=== PATIENT | male | born 1945 | race Caucasian/White ===

== ENCOUNTER → 2020-07-14 | Outpatient (CLI) | payer MEDICARE ==
--- NOTE | 2020-07-14 13:35 | US ---
EXAMINATION TYPE: US kidneys/renal and bladder DATE OF EXAM: 07/14/2020 COMPARISON: NONE CLINICAL HISTORY: R31.29 Microscopic hematuria. Hematuria EXAM MEASUREMENTS: Right Kidney: 11.0 x 4.9 x 4.3 cm Left Kidney: 10.6 x 5.1 x 4.0 cm Right Kidney: Hypoechoic area mid pole 5.0 x 3.9 x 4.1 cm this is not a couple cyst. Complex cyst or solid lesion may be present. Recommend CT abdomen pelvis for additional workup. Left Kidney: No hydronephrosis or masses seen Bladder: Anechoic Bilateral Jets seen: Yes IMPRESSION: 1. Complex cyst or solid lesion mid right kidney. CT abdomen pelvis with contrast recommended for add itional workup.
== END | disposition home or self-care (01) ==
LOC: RADUSWWP 12:55
PROVIDERS: ATTEND Family Medicine
DX: R31.29 Other microscopic hematuria (principal)
CPT/HCPCS: 76770

== ENCOUNTER 2020-08-22 01:47 | Inpatient (IN) | payer MEDICARE ==
[2020-08-22] MEDS ORDERED: KETOROLAC 15 MG/ML 1 ML VIAL IVP STA (02:58)
[2020-08-22] MEDS ORDERED: MORPHINE SULFATE 4 MG/ML SYRINGE IV STA ×2 (02:58→03:26)
[2020-08-22 03:00] LABS: Basophils # (A) 0.1 k/uL (0-0.2); Basophils % (A) 1 %; Eosinophils # (A) 0.2 k/uL (0-0.7); Eosinophils % (A) 3 %; HCT 46.9 % (39.0-53.0); HGB 16.3 gm/dL (13.0-17.5); Lymphocytes # (A) 1.8 k/uL (1.0-4.8); Lymphocytes % (A) 24 %; MCH 31.2 pg (25.0-35.0); MCHC 34.8 g/dL (31.0-37.0); MCV 89.7 fL (80.0-100.0); Mean Platelet Volume 7.2; Monocytes # (A) 0.6 k/uL (0-1.0); Monocytes % (A) 8 %; Neutrophils # (A) 4.7 k/uL (1.3-7.7); Neutrophils % (A) 63 %; Platelet Count 225 k/uL (150-450); RBC 5.24 m/uL (4.30-5.90); RDW 12.9 % (11.5-15.5); WBC 7.4 k/uL (3.8-10.6)
[2020-08-22 03:11] LABS: Albumin 4.6 g/dL (3.5-5.0); Calcium 9.7 mg/dL (8.4-10.2); Potassium 4.1 mmol/L (3.5-5.1); Total Bilirubin 0.8 mg/dL (0.2-1.3); Total Protein 7.2 g/dL (6.3-8.2)
[2020-08-22 03:26] LABS: Appearance,Urine Turbid (Clear); Bilirubin,Urine Negative (Negative); Blood,Urine Large (Negative); Color,Urine Dark Red; Glucose,Urine (UA) Negative (Negative); Ketones,Urine Negative (Negative); Leukocyte Esterase,Urine Small (Negative); Nitrite,Urine Negative (Negative); Protein,Urine 2+ (Negative); RBC,Urine >182 /hpf (0-5); Urobilinogen,Urine <2.0 mg/dL (<2.0); WBC,Urine 37 /hpf (0-5)
--- NOTE | 2020-08-22 03:29 | ED ---
General Adult HPI - General Chief complaint: Urogenital Stated complaint: RT side flank pain Time Seen by Provider: 08/22/20 02:42 Source: patient Mode of arrival: wheelchair Limitations: no limitations - History of Present Illness Initial comments: This patient is a 75-year-old man who presents to be evaluated for suspected kidney stone. Patient states that about 4 hours ago he started having pain to the right flank that he states was similar to previous episode a stone area patient also was having associated nausea and he noted hematuria. Onset/Timin -: hour(s) Location: abdomen, right Radiation: non-radiation Quality: aching, sharp Consistency: colicky Improves with: none Worsens with: none Associated Symptoms: nausea/vomiting, other (Hematuria) Treatments Prior to Arrival: none - Related Data Home Medications Medication Instructions Recorded Confirmed Aspirin EC [Ecotrin] 325 mg PO HS 08/22/20 08/22/20 Atorvastatin Calcium [Lipitor] 10 mg PO HS 08/22/20 08/22/20 amLODIPine BESYLATE/BENAZEPRIL 1 cap PO HS 08/22/20 08/22/20 [Lotrel 10-20 MG] Allergies Allergy/AdvReac Type Severity Reaction Status Date / Time No Known Allergies Allergy Verified 08/22/20 06:53 Review of Systems ROS Statement: Those systems with pertinent positive or pertinent negative responses have been documented in the HPI. ROS Other: All systems not noted in ROS Statement are negative. Constitutional: Denies: fever, chills Respiratory: Denies: cough, dyspnea Cardiovascular: Denies: chest pain, palpitations, edema Gastrointestinal: Reports: as per HPI, abdominal pain, nausea. Denies: vomiting, diarrhea, constipation, melena, hematochezia Genitourinary: Reports: hematuria. Denies: dysuria, frequency, testicular pain, testicular mass Musculoskeletal: Denies: back pain Skin: Denies: rash Neurological: Denies: headache, weakness, numbness Past Medical History Past Medical History: Hypertension Additional Past Medical History / Comment(s): Stroke History of Any Multi-Drug Resistant Organisms: None Reported Past Surgical History: Orthopedic Surgery Past Psychological History: No Psychological Hx Reported Smoking Status: Never smoker Past Alcohol Use History: None Reported Past Drug Use History: None Reported General Exam Limitations: no limitations General appearance: alert, in no apparent distress Head exam: Present: atraumatic, normocephalic Eye exam: Present: normal appearance. Absent: scleral icterus, conjunctival injection Respiratory exam: Present: normal lung sounds bilaterally. Absent: respiratory distress, wheezes, rales, rhonchi, stridor Cardiovascular Exam: Present: normal rhythm, bradycardia, normal heart sounds. Absent: systolic murmur, diastolic murmur, rubs, gallop GI/Abdominal exam: Present: soft. Absent: distended, tenderness, guarding, rebound, rigid, mass Extremities exam: Present: normal inspection, normal capillary refill. Absent: pedal edema, calf tenderness Back exam: Present: normal inspection, CVA tenderness (R). Absent: CVA tenderness (L) Neurological exam: Present: alert Skin exam: Present: warm, dry, intact, normal color. Absent: rash Course Vital Signs 08/22/20 08/22/20 08/22/20 01:58 03:04 06:00 Temperature 97.5 F L Pulse Rate 57 L 82 69 Respiratory 18 16 16 Rate Blood Pressure 157/85 154/77 141/71 O2 Sat by Pulse 100 97 98 Oximetry Medical Decision Making - Lab Data Result diagrams: 08/22/20 02:51 08/22/20 02:51 Lab Results 08/22/20 08/22/20 08/22/20 Range/Units 02:51 02:51 02:51 WBC 7.4 (3.8-10.6) k/uL RBC 5.24 (4.30-5.90) m/uL Hgb 16.3 (13.0-17.5) gm/dL Hct 46.9 (39.0-53.0) % MCV 89.7 (80.0-100.0) fL MCH 31.2 (25.0-35.0) pg MCHC 34.8 (31.0-37.0) g/dL RDW 12.9 (11.5-15.5) % Plt Count 225 (150-450) k/uL MPV 7.2 Neutrophils % 63 % Lymphocytes % 24 % Monocytes % 8 % Eosinophils % 3 % Basophils % 1 % Neutrophils # 4.7 (1.3-7.7) k/uL Lymphocytes # 1.8 (1.0-4.8) k/uL Monocytes # 0.6 (0-1.0) k/uL Eosinophils # 0.2 (0-0.7) k/uL Basophils # 0.1 (0-0.2) k/uL Sodium 136 L (137-145) mmol/L Potassium 4.1 (3.5-5.1) mmol/L Chloride 99 (98-107) mmol/L Carbon Dioxide 28 (22-30) mmol/L Anion Gap 9 mmol/L BUN 20 (9-20) mg/dL Creatinine 0.98 (0.66-1.25) mg/dL Est GFR (CKD-EPI)AfAm 88 (>60 ml/min/1.73 sqM) Est GFR (CKD-EPI)NonAf 76 (>60 ml/min/1.73 sqM) Glucose 119 H (74-99) mg/dL Calcium 9.7 (8.4-10.2) mg/dL Total Bilirubin 0.8 (0.2-1.3) mg/dL AST 34 (17-59) U/L ALT 36 (4-49) U/L Alkaline Phosphatase 127 H (38-126) U/L Total Protein 7.2 (6.3-8.2) g/dL Albumin 4.6 (3.5-5.0) g/dL Amylase 74 (30-110) U/L Lipase 261 (23-300) U/L Urine Color Dark Red Urine Appearance Turbid (Clear) Urine pH 6.0 (5.0-8.0) Ur Specific [place] 1.020 (1.001-1.035) Urine Protein 2+ H (Negative) Urine Glucose (UA) Negative (Negative) Urine Ketones Negative (Negative) Urine Blood Large H (Negative) Urine Nitrite Negative (Negative) Urine Bilirubin Negative (Negative) Urine Urobilinogen <2.0 (<2.0) mg/dL Ur Leukocyte Esterase Small H (Negative) Urine RBC >182 H (0-5) /hpf Urine WBC 37 H (0-5) /hpf Coronavirus (PCR) (Not Detectd) 08/22/20 Range/Units 05:24 WBC (3.8-10.6) k/uL RBC (4.30-5.90) m/uL Hgb (13.0-17.5) gm/dL Hct (39.0-53.0) % MCV (80.0-100.0) fL MCH (25.0-35.0) pg MCHC (31.0-37.0) g/dL RDW (11.5-15.5) % Plt Count (150-450) k/uL MPV Neutrophils % % Lymphocytes % % Monocytes % % Eosinophils % % Basophils % % Neutrophils # (1.3-7.7) k/uL Lymphocytes # (1.0-4.8) k/uL Monocytes # (0-1.0) k/uL Eosinophils # (0-0.7) k/uL Basophils # (0-0.2) k/uL Sodium (137-145) mmol/L Potassium (3.5-5.1) mmol/L Chloride (98-107) mmol/L Carbon Dioxide (22-30) mmol/L Anion Gap mmol/L BUN (9-20) mg/dL Creatinine (0.66-1.25) mg/dL Est GFR (CKD-EPI)AfAm (>60 ml/min/1.73 sqM) Est GFR (CKD-EPI)NonAf (>60 ml/min/1.73 sqM) Glucose (74-99) mg/dL Calcium (8.4-10.2) mg/dL Total Bilirubin (0.2-1.3) mg/dL AST (17-59) U/L ALT (4-49) U/L Alkaline Phosphatase (38-126) U/L Total Protein (6.3-8.2) g/dL Albumin (3.5-5.0) g/dL Amylase (30-110) U/L Lipase (23-300) U/L Urine Color Urine Appearance (Clear) Urine pH (5.0-8.0) Ur Specific [place] (1.001-1.035) Urine Protein (Negative) Urine Glucose (UA) (Negative) Urine Ketones (Negative) Urine Blood (Negative) Urine Nitrite (Negative) Urine Bilirubin (Negative) Urine Urobilinogen (<2.0) mg/dL Ur Leukocyte Esterase (Negative) Urine RBC (0-5) /hpf Urine WBC (0-5) /hpf Coronavirus (PCR) Not Detected (Not Detectd) Disposition Clinical Impression: Kidney stone on right side, Renal mass, right, Intractable pain Disposition: ADMITTED IP TO THIS HOSP Condition: Fair Is patient prescribed a controlled substance at d/c from ED?: No Referrals: Clifton Pearson MD [Primary Care Provider] - 1-2 days
--- NOTE | 2020-08-22 04:18 | CT ---
EXAM: CT Abdomen and Pelvis Without Intravenous Contrast CLINICAL HISTORY: ITS.REASON CT Reason: stone protocol TECHNIQUE: Axial computed tomography images of the abdomen and pelvis without intravenous contrast. CTDI is 10.87 mGy and DLP is 610.3 mGy-cm. This CT exam was performed using one or more of the following dose reduction techniques: automated exposure control, adjustment of the mA and/or kV according to patient size, and/or use of iterative reconstruction technique. COMPARISON: 07/14/2020 FINDINGS: Lung bases: No mass. No consolidation. ABDOMEN: Liver: Mildly nodular. Gallbladder and bile ducts: Unremarkable. Pancreas: No ductal dilation. Spleen: Unremarkable. Adrenals: Unremarkable. Kidneys and ureters: Mild right hydroureteronephrosis secondary to 6 mm stone in the proximal ureter. There is high-density fluid in the right proximal ureter and renal pelvis. 4.9 cm masslike process arising from the upper pole the right kidney. Mild left pelvocaliectasis. Stomach and bowel: No bowel obstruction. No bowel wall thickening. PELVIS: Appendix: No evidence of appendicitis. Bladder: No stones. Mildly thickened Reproductive: Unremarkable. ABDOMEN and PELVIS: Intraperitoneal space: Unremarkable. Bones/joints: No acute fractures. Soft tissues: Unremarkable. Vasculature: No abdominal aortic aneurysm. Lymph nodes: No enlarged lymph nodes. IMPRESSION: 1. Mild right hydroureteronephrosis secondary to 6 mm stone in the proximal ureter. 2. 4.9 cm masslike process arising from the upper pole the right kidney. Suspicious for neoplasm. 3. There is high-density fluid in the right proximal ureter and renal pelvis. This may be hemorrhage from the mass. Recommend urology consultation.
[2020-08-22] MEDS ORDERED: TAMSULOSIN 0.4 MG CAP.ER.24H PO STA (04:23)
[2020-08-22] MEDS ORDERED: HYDROmorphone 0.5 MG/0.5 ML SYRINGE IVP STA (04:56)
[2020-08-22] MEDS ORDERED: ONDANSETRON 4 MG/2 ML VIAL IVP STA (05:53)
[2020-08-22] MEDS ORDERED: LEVOFLOXACIN 500 MG TAB PO STA (06:14)
[2020-08-22] MEDS ORDERED: NALOXONE 0.4 MG/ML 1 ML VIAL IV PRN (06:58)
[2020-08-22] MEDS ORDERED: ONDANSETRON 4 MG/2 ML VIAL IVP PRN (06:58)
[2020-08-22] MEDS ORDERED: MORPHINE SULFATE 4 MG/ML SYRINGE IV PRN (06:58)
[2020-08-22] MEDS ORDERED: ACETAMINOPHEN TAB 325 MG TAB PO PRN (06:58)
[2020-08-22] MEDS: SODIUM CHLORIDE 0.9% 1,000 ML IV SCH ×3 (07:04→22:23)
[2020-08-22] MEDS: FAMOTIDINE 20 MG TAB PO SCH ×2 (08:31→20:03)
[2020-08-22] MEDS: HYDROmorphone 0.5 MG/0.5 ML SYRINGE IVP PRN ×4 (08:38→22:52)
--- NOTE | 2020-08-22 11:00 | P.GSCN ---
History of Present Illness Consult date: 08/22/20 Reason for Consult: Right renal mass, right ureteral calculus Requesting physician: Dre De Santiago History of present illness: The patient is a 75-year-old white male with a long history of kidney stones. He had an episode of gross painless hematuria 1 month ago. Last night, he experienced acute onset of nonradiating right flank pain associated with gross hematuria. He also experienced nausea and vomiting. Review of Systems - Constitutional Denies chills, Denies fever - Gastrointestinal Reports nausea, Reports vomiting - Genitourinary Reports flank pain, Reports hematuria Past Medical History Past Medical History: Hypertension Additional Past Medical History / Comment(s): Stroke History of Any Multi-Drug Resistant Organisms: None Reported Past Surgical History: Orthopedic Surgery Past Psychological History: No Psychological Hx Reported Smoking Status: Never smoker Past Alcohol Use History: None Reported Past Drug Use History: None Reported - Past Family History Mother Family Medical History: CVA/TIA Additional Family Medical History / Comment(s): Mother had a CVA. Father Family Medical History: Unable to Obtain Additional Family Medical History / Comment(s): Pt cannot recall father's medical hx Medications and Allergies Home Medications Medication Instructions Recorded Confirmed Type Aspirin EC [Ecotrin] 325 mg PO HS 08/22/20 08/22/20 History Atorvastatin Calcium [Lipitor] 10 mg PO HS 08/22/20 08/22/20 History amLODIPine BESYLATE/BENAZEPRIL 1 cap PO HS 08/22/20 08/22/20 History [Lotrel 10-20 MG] Allergies Allergy/AdvReac Type Severity Reaction Status Date / Time No Known Allergies Allergy Verified 08/22/20 06:53 Surgical - Exam Vital Signs Temp Pulse Resp BP Pulse Ox 97.5 F L 57 L 18 157/85 100 08/22/20 01:58 08/22/20 01:58 08/22/20 01:58 08/22/20 01:58 08/22/20 01:58 - General well developed, well nourished, no distress - Neck no masses, trachea midline - Respiratory normal respiratory effort, clear to auscultation - Cardiovascular Rhythm: regular Abnormal Heart Sounds: no systolic murmur, no diastolic murmur, no rub, no S3 Gallop, no S4 Gallop, no click, no other - Abdomen Abdomen: soft, non tender, no guarding, no rigid, no rebound - Psychiatric oriented to time, oriented to person, oriented to place, speech is normal, memory intact Results - Labs 08/22/20 02:51 08/22/20 02:51 Abnormal Lab Results - Last 24 Hours (Table) 08/22/20 08/22/20 Range/Units 02:51 02:51 Sodium 136 L (137-145) mmol/L Glucose 119 H (74-99) mg/dL Alkaline Phosphatase 127 H (38-126) U/L Urine Protein 2+ H (Negative) Urine Blood Large H (Negative) Ur Leukocyte Esterase Small H (Negative) Urine RBC >182 H (0-5) /hpf Urine WBC 37 H (0-5) /hpf Diabetes panel 08/22/20 Range/Units 02:51 Sodium 136 L (137-145) mmol/L Potassium 4.1 (3.5-5.1) mmol/L Chloride 99 (98-107) mmol/L Carbon Dioxide 28 (22-30) mmol/L BUN 20 (9-20) mg/dL Creatinine 0.98 (0.66-1.25) mg/dL Glucose 119 H (74-99) mg/dL Calcium 9.7 (8.4-10.2) mg/dL AST 34 (17-59) U/L ALT 36 (4-49) U/L Alkaline Phosphatase 127 H (38-126) U/L Total Protein 7.2 (6.3-8.2) g/dL Albumin 4.6 (3.5-5.0) g/dL Calcium panel 08/22/20 Range/Units 02:51 Calcium 9.7 (8.4-10.2) mg/dL Albumin 4.6 (3.5-5.0) g/dL Pituitary panel 08/22/20 Range/Units 02:51 Sodium 136 L (137-145) mmol/L Potassium 4.1 (3.5-5.1) mmol/L Chloride 99 (98-107) mmol/L Carbon Dioxide 28 (22-30) mmol/L BUN 20 (9-20) mg/dL Creatinine 0.98 (0.66-1.25) mg/dL Glucose 119 H (74-99) mg/dL Calcium 9.7 (8.4-10.2) mg/dL Adrenal panel 08/22/20 Range/Units 02:51 Sodium 136 L (137-145) mmol/L Potassium 4.1 (3.5-5.1) mmol/L Chloride 99 (98-107) mmol/L Carbon Dioxide 28 (22-30) mmol/L BUN 20 (9-20) mg/dL Creatinine 0.98 (0.66-1.25) mg/dL Glucose 119 H (74-99) mg/dL Calcium 9.7 (8.4-10.2) mg/dL Total Bilirubin 0.8 (0.2-1.3) mg/dL AST 34 (17-59) U/L ALT 36 (4-49) U/L Alkaline Phosphatase 127 H (38-126) U/L Total Protein 7.2 (6.3-8.2) g/dL Albumin 4.6 (3.5-5.0) g/dL - Imaging CT scan - abdomen: report reviewed, image reviewed Assessment and Plan (1) Calculus of ureter Current Visit: Yes Status: Acute Code(s): N20.1 - CALCULUS OF URETER SNOMED Code(s): 90068316 (2) Renal mass, right Current Visit: Yes Status: Acute Code(s): N28.89 - OTHER SPECIFIED DISORDERS OF KIDNEY AND URETER SNOMED Code(s): 285239846 (3) Hydronephrosis with renal and ureteral calculous obstruction Current Visit: Yes Status: Acute Code(s): N13.2 - HYDRONEPHROSIS WITH RENAL AND URETERAL CALCULOUS OBSTRUCTION SNOMED Code(s): 157989678 Plan: The computed tomography scan shows mild right hydronephrosis due to a 6 mm right proximal ureteral calculus. A 4.9 cm right upper pole renal mass is also seen, suspicious for renal cell carcinoma. The mass may or may not be amenable to a partial nephrectomy. I have suggested he undergo cystoscopy, right ureteroscopy with Holmium laser lithotripsy to remove the right ureteral calculus. We will then determine whether he is better suited for a partial or total nephrectomy. I intend to perform ureteroscopy later today. I have reviewed the procedure in detail with the patient. Potential risks have been discussed, including anesthesia, bleeding, infection, ureteral injury, and inability to successfully remove the calculus. The need for a ureteral stent was discussed, and he was also advised of the possible need for a nephrostomy tube in the event that the obstruction cannot be resolved or the ureter is injured. Time with Patient: Greater than 30
[2020-08-22] MEDS ORDERED: IV FLUID CONTINUATION 1,000 ML IV ONE (14:39)
[2020-08-22] MEDS ORDERED: DEXAMETHASONE SOD PHOSPHATE 4 MG/ML 1 ML VIAL IV ONE (15:01)
[2020-08-22] MEDS ORDERED: METOCLOPRAMIDE 5 MG/ML 2 ML VIAL ONE (15:06)
[2020-08-22] MEDS ORDERED: METOCLOPRAMIDE 5 MG/ML 2 ML VIAL IVP ONE (15:09)
[2020-08-22] MEDS ORDERED: fentaNYL (PF) 50 MCG/ML 2 ML AMP ONE (15:45)
[2020-08-22] MEDS ORDERED: LIDOCAINE 1% INJ 10MG/ML (20 ML MDV) ONE (15:45)
[2020-08-22] MEDS ORDERED: SUCCINYLCHOLINE CHLORIDE 100 MG/5 ML SYR IV ONE (15:45)
[2020-08-22] MEDS ORDERED: MIDAZOLAM 2 MG/2 ML VIAL ONE (15:45)
[2020-08-22] MEDS ORDERED: PROPOFOL 10 MG/ML 20 ML VIAL IV ONE (15:45)
[2020-08-22] MEDS ORDERED: ePHEDrine SULFATE/0.9% NACL/PF 50 MG/5 ML SYRINGE IV ONE (15:45)
--- NOTE | 2020-08-22 18:06 | P.OP ---
Date of Procedure: 08/22/20 Preoperative Diagnosis: Right ureteral calculus Postoperative Diagnosis: Same Procedure(s) Performed: Cystoscopy, right ureteroscopy with Holmium laser lithotripsy and stone basketing, right ureteral stent insertion Anesthesia: SALLIE Surgeon: Dejuan Bush Estimated Blood Loss (ml): 30 IV fluids (ml): 650 Pathology: other (Calculus fragment, sent for chemical analysis) Condition: stable Disposition: PACU Indications for Procedure: The patient is a 75-year-old white male with a long history of kidney stones. He had an episode of gross painless hematuria 1 month ago. Last night, he experienced acute onset of nonradiating right flank pain associated with gross hematuria. He also experienced nausea and vomiting. The CT scan shows mild right hydronephrosis due to a 6 mm right proximal ureteral calculus, as well as a 4.9 cm right upper pole renal mass. Operative Findings: Successful fragmentation and removal of right ureteral calculus. Description of Procedure: The patient was taken to the operating room and placed in the dorsolithotomy position, with legs supported in Alfonso stirrups. The external genitalia was prepped and draped sterilely. The 30 lens was used to introduce the 21-Nepalese Richard cystoscopic sheath through the urethra and into the bladder under direct vision. The prostatic urethra showed evidence of mild lateral lobe enlargement and a high median bar. The bladder was examined in its entirety. Both ureteral orifices were normal anatomic location and configuration, and clear urine effluxed from the left. Bloody urine effluxed from the right ureteral orifice. No tumors or foreign bodies were seen. A 0.038 inch Glidewire was passed through the cystoscope. The ureteral orifice was cannulated, and the Glidewire was advanced up to the renal pelvis. The cystoscope was removed, and an 11/13- Nepalese ureteral access catheter was passed over the wire, up to the proximal ureter. The flexible ureteroscope was then passed through the ureteral access catheter sheath, up to the stone. The 200 micron Holmium laser probe was passed through the ureteroscope, and lithotripsy was performed. The calculus refluxed into the kidney, which was filled with clot. The ureteroscope was advanced to follow the calculus, and the calculus was fragmented. It was necessary to irrigate multiple clots from the renal pelvis to improve visualization. Some clots were removed with a 1.9-Nepalese nitinol basket, along with the largest calculus fragment. There were several very small residual calculus fragments within an upper pole calyx which could not be manipulated into the field of vision to allow lasering or basketing. The Glidewire was passed through the ureteroscope, which was removed along with the ureteral access catheter sheath. A longitudinal mucosal tear was noted within the mid ureter, resulting from the ureteral access catheter sheath. The Glidewire was backloaded into the cystoscope, which was passed into the bladder. A 26 cm, 6-Nepalese double-J ureteral stent was placed over the wire. Proper stent positioning of verified fluoroscopically and endoscopically. The bladder was emptied and the cystoscope removed. The patient tolerated the procedure well and was taken to the recovery room in stable condition. [facility] [place] [facility] Report: Procedure Acuity: Urgent Stone Size and Location: 6 mm, right proximal ureter Ureteral Dilation: No Ureteral Access Sheath Used: Yes Stone Sent for Analysis: Yes All Stones/Fragments Were Removed with a Basket: No Complications: No Preoperative Antibiotics Given: No Stent Placed: Yes If Stent Placed, Was String Left Attached: No If Stent Placed, When is it to be Removed: 2 weeks Discharge Medications:
--- NOTE | 2020-08-22 20:29 | P.HPIM ---
History of Present Illness H&P Date: 08/22/20 Chief Complaint: Right flank pain History of presenting complaint: This is a pleasant 75-year-old patient of Dr. hays. Chronic stable medical conditions include hypertension, hyperlipidemia, some arthritis. In the right hand. Patient presents with right flank pain present for several hours. No fever no chills. Had nausea vomiting. Has some hematuria. Pain did not radiate anywhere. Pain is still present. Review of systems: GEN.: Tired EYES: None HEENT: None NECK: None RESPIRATORY: None CARDIOVASCULAR: None GASTROINTESTINAL: As above] GENITOURINARY: As above MUSCULOSKELETAL: Some joint pain in the right hands. She the thumb LYMPHATICS: None HEMATOLOGICAL: None PSYCHIATRY: None NEUROLOGICAL: None Past medical history to include: Stroke, hypertension, hyperlipidemia number surgery cystolithotripsy pyloric sphincter surgery as a baby Social history: . Does not smoke or drink alcohol. [employer] Physical examination: VITAL SIGNS: 97.5, 57, 18, 1 57 x 85, 100% room air-upon presentation GENERAL: BMI 25.8, laying in bed, slightly uncomfortable. EYES: Pupils equal. Conjunctiva normal. HEENT: External appearance of nose and ears normal, oral cavity grossly normal. NECK: JVD not raised; masses not palpable. HEART: First and second heart sounds are normal; no edema. LUNGS: Respiratory rate normal; clear to auscultation. MUSCULAR skeletal: Evidence of arthritis especially in the hands ABDOMEN: Soft, right flank tenderness, liver spleen not palpable, no masses palpable. PSYCH: Alert and oriented x3; mood and affect normal. NEUROLOGICAL: Cranial nerves grossly intact; no facial asymmetry, power and sensation grossly intact. LYMPHATICS: No lymph nodes palpable in the axilla and neck INVESTIGATIONS, reviewed in the clinical context: WBC 7.4 hemoglobin 16.3 platelets 225 potassium 4.1 creatinine 0.98 UA positive for protein 2+, blood large, RBC greater than 182 Coronavirus [PCL]-not detected Computed tomography scan of the abdomen and pelvis without IV contrast: Mild right hydroureteronephrosis secondary to 6 mm stone in the proximal ureter. High density fluid in the right proximal ureter and renal pelvis. 4.9 cm masslike process arising from the upper pole of the right kidney. Assessment and plan: -Right hydroureteronephrosis secondary to 6 mm. stone in the proximal ureter. Patient be started on IV fluids. Urology is consulted. Possible intervention -4.9 cm masslike process arising from the upper pole of the right kidney. This will be followed by urology -Hematuria due to ureter stone -Essential hypertension, continue with Lotrel -Hyperlipidemia, continue with Lipitor Patient is an IV fluids. Pain medications. Lovenox for DVT prophylaxis. Patient be taken to the OR this afternoon by Dr. Velasquez from urology, for possible lithotripsy, stent. Care was discussed with the patient and . Questions answered. Past Medical History Past Medical History: Hypertension Additional Past Medical History / Comment(s): Stroke History of Any Multi-Drug Resistant Organisms: None Reported Past Surgical History: Orthopedic Surgery Additional Past Surgical History / Comment(s): Lumbar surgery, cysto/lithotripsy, pyloric sphincter surgery as baby, R rotator cuff surgery, colonoscopy, bilateral cataract removal. Past Anesthesia/Blood Transfusion Reactions: No Reported Reaction Past Psychological History: No Psychological Hx Reported Smoking Status: Never smoker Past Alcohol Use History: None Reported Past Drug Use History: None Reported - Past Family History Mother Family Medical History: CVA/TIA Additional Family Medical History / Comment(s): Mother had a CVA. Father Family Medical History: Unable to Obtain Additional Family Medical History / Comment(s): Pt cannot recall father's medi leslye hx Medications and Allergies Home Medications Medication Instructions Recorded Confirmed Type Aspirin EC [Ecotrin] 325 mg PO HS 08/22/20 08/22/20 History Atorvastatin Calcium [Lipitor] 10 mg PO HS 08/22/20 08/22/20 History amLODIPine BESYLATE/BENAZEPRIL 1 cap PO HS 08/22/20 08/22/20 History [Lotrel 10-20 MG] Allergies Allergy/AdvReac Type Severity Reaction Status Date / Time No Known Allergies Allergy Verified 08/22/20 06:53 Physical Exam Vitals: Vital Signs Temp Pulse Pulse Resp BP BP Pulse Ox 08/22/20 08:07 97.6 F 61 16 139/60 94 L 08/22/20 06:00 69 16 141/71 98 08/22/20 03:04 82 16 154/77 97 08/22/20 01:58 97.5 F L 57 L 18 157/85 100 Intake and Output 08/21/20 08/22/20 08/22/20 22:59 06:59 14:59 Other: Voiding Method Toilet Toilet Weight 81.647 kg 81.647 kg Results CBC & Chem 7: 08/22/20 02:51 08/22/20 02:51 Labs: Abnormal Lab Results - Last 24 Hours (Table) 08/22/20 08/22/20 Range/Units 02:51 02:51 Sodium 136 L (137-145) mmol/L Glucose 119 H (74-99) mg/dL Alkaline Phosphatase 127 H (38-126) U/L Urine Protein 2+ H (Negative) Urine Blood Large H (Negative) Ur Leukocyte Esterase Small H (Negative) Urine RBC >182 H (0-5) /hpf Urine WBC 37 H (0-5) /hpf Thrombosis Risk Factor Assmnt - Choose All That Apply Any of the Below Risk Factors Present?: Yes Each Factor Represents 1 point: Minor surgery planned Other Risk Factors: Yes Each Risk Factor Represents 2 Points: Age 61-74 years Other congenital or acquired thrombophilia - If yes, enter type in comment: No Thrombosis Risk Factor Assessment Total Risk Factor Score: 3 Thrombosis Risk Factor Assessment Level: Moderate Risk
[2020-08-22] MEDS ORDERED: ATORVASTATIN 10 MG TAB PO SCH (21:00)
[2020-08-22] MEDS ORDERED: lisinopriL 20 MG TAB PO SCH (21:00)
[2020-08-22] MEDS ORDERED: amLODIPine 10 MG TAB PO SCH (21:00)
[2020-08-22] MEDS: ENOXAPARIN 40 MG/0.4 ML SYRINGE SQ SCH (21:04)
[2020-08-23] MEDS: HYDROmorphone 0.5 MG/0.5 ML SYRINGE IVP PRN ×2 (01:02→07:15)
[2020-08-23] MEDS: SODIUM CHLORIDE 0.9% 1,000 ML IV SCH (04:17)
[2020-08-23 04:48] LABS: Basophils % (A) 0 %; Eosinophils % (A) 0 %; HCT 40.5 % (39.0-53.0); HGB 14.3 gm/dL (13.0-17.5); Lymphocytes # (A) 0.5 k/uL (1.0-4.8); Lymphocytes % (A) 4 %; MCH 32.1 pg (25.0-35.0); MCHC 35.3 g/dL (31.0-37.0); MCV 90.9 fL (80.0-100.0); Mean Platelet Volume 7.3; Monocytes # (A) 0.8 k/uL (0-1.0); Monocytes % (A) 6 %; Neutrophils # (A) 11.8 k/uL (1.3-7.7); Neutrophils % (A) 90 %; Platelet Count 161 k/uL (150-450); RBC 4.46 m/uL (4.30-5.90); WBC 13.2 k/uL (3.8-10.6)
[2020-08-23 04:54] LABS: African American GFR (CKD) 66 (>60 ml/min/1.73 sqM); Anion Gap 6 mmol/L; Blood Urea Nitrogen 21 mg/dL (9-20); Calcium 8.9 mg/dL (8.4-10.2); Carbon Dioxide 25 mmol/L (22-30); Chloride 103 mmol/L (98-107); Glucose 142 mg/dL (74-99); Non-African American GFR(CKD) 57 (>60 ml/min/1.73 sqM); Potassium 4.4 mmol/L (3.5-5.1); Sodium 134 mmol/L (137-145)
[2020-08-23 08:08] VITALS: BP 177/78; PULSE 79; RESP 16; TEMP 97.9
[2020-08-23] MEDS: ENOXAPARIN 40 MG/0.4 ML SYRINGE SQ SCH (08:20)
[2020-08-23] MEDS: FAMOTIDINE 20 MG TAB PO SCH (08:20)
[2020-08-23] MEDS ORDERED: HYDROcodone/APAP 5-325MG 1 EACH TAB PO PRN ×2 (08:40)
--- NOTE | 2020-08-23 08:42 | P.PN ---
Progress Note - Text Progress Note Date: 08/23/20 Mr. Julio underwent successful removal of his right ureteral calculus yesterday. He reports suprapubic/right groin pain, likely related to his ureteral stent. He is receiving tamsulosin and parenteral analgesics. I have ordered L[place]to. His hematuria is improved, though I advised him that it may recur as a result of the stent and/or the renal mass. He is urologically stable for discharge. Arrangements will be made for him to undergo a CT scan of the chest and abdomen for staging purposes. His ureteral stent will be removed next week in the office. Please notify me if I can be of any further assistance.
--- NOTE | 2020-08-23 12:03 | FL ---
Fluoroscopy INDICATION: Pain FINDINGS: Fluoroscopy time: 38 seconds. Images obtained: 1. IMPRESSIONS: 1. Documentation of fluoroscopy.
--- NOTE | 2020-08-23 18:50 | P.DS ---
Providers Date of admission: 08/22/20 07:01 Expected date of discharge: 08/23/20 Attending physician: Dre De Santiago Consults: 08/22/20 06:59 Consult Physician Routine Consulting Provider: Dimitri Frederick Consult Reason/Comments: Kidney stone. Right renal mass. Do you want consulting provider notified?: Already Contacted Primary care physician: [facility] Course: Chief Complaint: Right flank pain History of presenting complaint: This is a pleasant 75-year-old patient of Dr. pearson. Chronic stable medical conditions include hypertension, hyperlipidemia, some arthritis. In the right hand. Patient presents with right flank pain present for several hours. No fever no chills. Had nausea vomiting. Has some hematuria. Pain did not radiate anywhere. Pain is still present. Computed tomography scan of the abdomen and pelvis without IV contrast: Mild right hydroureteronephrosis secondary to 6 mm stone in the proximal ureter. Hi gh density fluid in the right proximal ureter and renal pelvis. 4.9 cm masslike process arising from the upper pole of the right kidney. Patient put on IV fluids antibiotics. Patient taken to or by Dr. Velasquez at the lithotripsy, stent placement. Today-some hematuria. Some discomfort in the pelvic area with urination. Seen by Dr. Velasquez today cleared for discharge. He'll follow up the patient for the kidney mass. Patient encouraged to increase oral intake of fluid. We will complete a course of Augmentin. Care was discussed the patient and . Questions were answered. Discussion and discharge planning more than 35 minutes Consultation: Dr. Velasquez from urology. Past medical history to include: Stroke, hypertension, hyperlipidemia number surgery cystolithotripsy pyloric sph incter surgery as a baby Social history: . 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 EYES: Pupils equal. Conjunctiva normal. NECK: JVD not raised; masses not palpable. HEART: First and second heart sounds are normal; no edema. LUNGS: Respiratory rate normal; clear to auscultation. MUSCULAR skeletal: Evidence of arthritis especially in the hands ABDOMEN: Soft, no tenderness, liver spleen not palpable, no masses palpable. PSYCH: Alert and oriented x3; mood and affect normal. INVESTIGATIONS, reviewed in the clinical context: August 23: WBC 13.2 hemoglobin 14.3 potassium 4.4 creatinine 1.25 WBC 7.4 hemoglobin 16.3 platelets 225 potassium 4.1 creatinine 0.98 UA positive for protein 2+, blood large, RBC greater than 182 Coronavirus [PCL]-not detected Computed tomography scan of the abdomen and pelvis without IV contrast: Mild right hydroureteronephrosis secondary to 6 mm stone in the proximal ureter. High density fluid in the right proximal ureter and renal pelvis. 4.9 cm masslike process arising from the upper pole of the right kidney. Assessment and plan: -Right hydroureteronephrosis secondary to 6 mm. stone in the proximal ureter. IV fluids. Underwent cystoscopy, right ureter". With laser lithotripsy and stone basketing. Right ureter stent placed. -4.9 cm masslike process arising from the upper pole of the right kidney. Will be followed by Dr. Velasquez as an outpatient -Hematuria due to ureter stone -Essential hypertension, continue with Lotrel -Hyperlipidemia, continue with Lipitor Disposition: Home Plan - Discharge Summary Discharge Rx Participant: No New Discharge Prescriptions: New Aspirin 81 mg PO DAILY #30 chewable Amoxicillin/Potassium Clav [Augmentin 875-125 Tablet] 1 tab PO Q12HR 1 Days #10 tab Acetaminophen Tab [Tylenol] 650 mg PO Q6HR PRN tab PRN Reason: Mild Pain Or Fever > 100.5 Continue amLODIPine BESYLATE/BENAZEPRIL [Lotrel 10-20 MG] 1 cap PO HS Atorvastatin Calcium [Lipitor] 10 mg PO HS Discontinued Aspirin EC [Ecotrin] 325 mg PO HS Discharge Medication List Atorvastatin Calcium [Lipitor] 10 mg PO HS 08/22/20 [History] amLODIPine BESYLATE/BENAZEPRIL [Lotrel 10-20 MG] 1 cap PO HS 08/22/20 [History] Acetaminophen Tab [Tylenol] 650 mg PO Q6HR PRN tab 08/23/20 [Rx] Amoxicillin/Potassium Clav [Augmentin 875-125 Tablet] 1 tab PO Q12HR 1 Days #10 tab 08/23/20 [Rx] Aspirin 81 mg PO DAILY #30 chewable 08/23/20 [Rx] Follow up Appointment(s)/Referral(s): Dejuan Bush MD [STAFF PHYSICIAN] - 2 Weeks Clifton Pearson MD [Primary Care Provider] - 1-2 days Patient Instructions/Handouts: Kidney Stones (DC) Activity/Diet/Wound Care/Special Instructions: cbc/bmp - 3 days
--- NOTE | 2020-08-26 13:37 | CDI ---
Documentation Clarification Form Date: 08/26/20 From: Prabha Mosley Phone: If you have a question about this query, please contact Sara Stafford, Cable Mock Up Assembler at [phone] between 8am and 5pm. Admit Date: 08/22/2020 07:01:00 AM Patient Name: Beto Julio Visit Number: [id number] Discharge Date: 08/23/2020 11:48:00 AM ATTENTION: The Clinical Documentation Specialists (CDI) and [facility] Coding Staff appreciate your assistance in clarifying documentation. Please respond to the clarification below the line at the bottom and electronically sign. The CDI & [facility] Coding staff will review the response and follow-up if needed. Please note: Queries are made part of the Legal Health Record. If you have any questions, please contact the author of this message via ITS. Dr. Dejuan Bush Your patient has documentation of " a longitudinal mucosal tear " in your procedure note. Clinical Indicators: Resulting from the ureteral access catheter sheath. Based on the clinical evidence and your professional judgment, do you feel there is significance of the longitudinal mucosal tear ( serosal tear) is a valid diagnosis? No, this is common and I simply made note of it in my dictation. (Last Revision: June 2019) MTDD
== END 2020-08-23 11:48 | disposition home or self-care (01) | DRG 661 ==
LOC: EC 01:47 → 6NMEDSUR 07:01
PROVIDERS: ADMIT Hospitalist; ATTEND Hospitalist
PROC: 0TC68ZZ Extirpation of Matter from Right Ureter, Via Natural or Artificial Opening Endoscopic (ICD-10-PCS; principal; 2020-08-22 16:20)
PROC: 0T768DZ Dilation of Right Ureter with Intraluminal Device, Via Natural or Artificial Opening Endoscopic (ICD-10-PCS; 2020-08-22 16:20)
PROC: 0TC38ZZ Extirpation of Matter from Right Kidney Pelvis, Via Natural or Artificial Opening Endoscopic (ICD-10-PCS; 2020-08-22 16:20)
DX: N13.2 Hydronephrosis with renal and ureteral calculous obstruction (principal); N28.89 Other specified disorders of kidney and ureter; E78.5 Hyperlipidemia, unspecified; I10 Essential (primary) hypertension; M19.041 Primary osteoarthritis, right hand; R31.9 Hematuria, unspecified; Z20.822 Contact with and (suspected) exposure to COVID-19; Z86.73 Personal history of transient ischemic attack (TIA), and cerebral infarction without residual deficits; Z79.899 Other long term (current) drug therapy
CPT/HCPCS: 36415; 74176; 80048; 80053; 81001; 82150; 82365; 83690; 85025; 87635; 96374; 96375; 96376; 99285

== ENCOUNTER → 2020-08-26 | Outpatient (CLI) | payer MEDICARE ==
--- NOTE | 2020-08-26 10:15 | XR ---
EXAMINATION TYPE: XR chest 2V DATE OF EXAM: 08/26/2020 COMPARISON: Chest x-ray June 05, 2013 HISTORY: Renal mass. TECHNIQUE: Frontal and lateral views of the chest are obtained. FINDINGS: There is no new suspicious focal air space opacity, pleural effusion, or pneumothorax seen . The cardiac silhouette size remains within normal limits with atherosclerotic change aortic knob. Multilevel spurring in spine. IMPRESSION: No acute cardiopulmonary process.
== END ==
LOC: RADCTMAIN 07:54
PROVIDERS: ATTEND Urology
DX: N28.89 Other specified disorders of kidney and ureter (principal)
CPT/HCPCS: 82565; 84520; 71046; 74160; 36415; Q9967

== ENCOUNTER → 2020-08-31 | Outpatient (CLI) | payer MEDICARE ==
--- NOTE | 2020-08-31 15:20 | NM ---
EXAMINATION TYPE: NM bone scan whole body DATE OF EXAM: 08/31/2020 COMPARISON: NONE HISTORY: Renal mass Delayed whole-body scanning was performed following the injection of 23.8 mCi Tc 99m MDP. Images wer e acquired 3 hours post injection. FINDINGS: No suspicious abnormal uptake is evident. Degenerative type uptake is bilateral knees more so on the left than the right. No suspicious photopenic defect or uptake identified within the kidneys. No susp icious uptake to suggest metastatic disease is identified. IMPRESSION: 1. No suspicious abnormality to suggest osseous metastasis.
== END | disposition home or self-care (01) ==
LOC: RADNMMAIN 11:16
PROVIDERS: ATTEND Urology
DX: D41.01 Neoplasm of uncertain behavior of right kidney (principal); R74.8 Abnormal levels of other serum enzymes
CPT/HCPCS: 78306; A9503

== ENCOUNTER → 2020-09-29 | Outpatient (CLI) | payer MEDICARE ==
[2020-09-29 13:45] LABS: Basophils % (A) 1 %; Eosinophils # (A) 0.2 k/uL (0-0.7); Eosinophils % (A) 3 %; HCT 45.6 % (39.0-53.0); HGB 16.3 gm/dL (13.0-17.5); Lymphocytes # (A) 1.7 k/uL (1.0-4.8); Lymphocytes % (A) 26 %; MCH 32.1 pg (25.0-35.0); MCHC 35.8 g/dL (31.0-37.0); MCV 89.7 fL (80.0-100.0); Mean Platelet Volume 7.2; Monocytes # (A) 0.5 k/uL (0-1.0); Monocytes % (A) 7 %; Neutrophils # (A) 4.1 k/uL (1.3-7.7); Neutrophils % (A) 62 %; Platelet Count 192 k/uL (150-450); RBC 5.08 m/uL (4.30-5.90); WBC 6.5 k/uL (3.8-10.6)
[2020-09-29 13:51] LABS: Appearance,Urine Clear (Clear); Bilirubin,Urine Negative (Negative); Blood,Urine Negative (Negative); Color,Urine Light Yellow; Glucose,Urine (UA) Negative (Negative); Ketones,Urine Negative (Negative); Leukocyte Esterase,Urine Negative (Negative); Nitrite,Urine Negative (Negative); PH, Urine 5.5 (5.0-8.0); Protein,Urine Negative (Negative); Specific Gravity,Urine 1.009 (1.001-1.035); Urobilinogen,Urine <2.0 mg/dL (<2.0)
[2020-09-29 13:52] LABS: Calcium 10.4 mg/dL (8.4-10.2)
== END | disposition home or self-care (01) ==
LOC: LABPAT 12:05
PROVIDERS: ATTEND Urology
DX: Z01.818 Encounter for other preprocedural examination (principal); D41.01 Neoplasm of uncertain behavior of right kidney; I10 Essential (primary) hypertension; R31.29 Other microscopic hematuria
CPT/HCPCS: 36415; 80048; 81003; 85025; 87086; 93005

== ENCOUNTER 2020-10-07 08:17 | Day surgery (SDC) | payer MEDICARE ==
[2020-10-05 14:46] VITALS: BMI 26.5
--- NOTE | 2020-10-06 21:28 | P.HPIHPCON ---
History of Present Illness H&P Date: 10/06/20 Chief Complaint: prostate cancer This is a 75 yo male hx o 4.3 cm right sided renal mass. Discussed with him based on review of image is concerning for renal cell carcinoma. The option of robotic radical vs partial nephrectomy was discussed with her. Risk and benefit of each approach were discussed with her. He agreed to proceed with robotic partial nephrectomy. Discussed risk of bleeding, infection, injury to nearby organ, potential of conversion to radical nephrectomy. Discussed potential need for dialysis if radical nephrectomy is performed. I also discussed with her the risk from anesthesia. He understood all the risk and agreed to proceed Consent for Procedure: I have explained the operation/procedure to the patient, including the risks, benefits, side effects, alternative therapies (including not receiving the proposed treatment or service), the likelihood of the patient achieving his/her goals, and potential recuperation problems for the procedure/sedation/analgesia, as well as any blood products, if indicated. I also explained to the patient the risks, benefits and side effects of the alternatives, as well as the risks related to not receiving the proposed procedure, care, treatment, or services. Past Medical History Past Medical History: CVA/TIA, Hypertension Additional Past Medical History / Comment(s): Stroke History of Any Multi-Drug Resistant Organisms: None Reported Past Surgical History: Orthopedic Surgery Additional Past Surgical History / Comment(s): Lumbar surgery, R rotator cuff surgery. cysto/lithotripsy. pyloric sphincter surgery as baby. bilateral cataract removal Past Anesthesia/Blood Transfusion Reactions: No Reported Reaction Past Psychological History: No Psychological Hx Reported Smoking Status: Never smoker Past Alcohol Use History: None Reported Past Drug Use History: None Reported - Past Family History Mother Family Medical History: CVA/TIA Additional Family Medical History / Comment(s): Mother had a CVA. Father Family Medical History: Unable to Obtain Additional Family Medical History / Comment(s): Pt cannot recall father's medical hx Medications and Allergies Home Medications Medication Instructions Recorded Confirmed Type Atorvastatin Calcium [Lipitor] 10 mg PO HS 08/22/20 10/05/20 History amLODIPine BESYLATE/BENAZEPRIL 1 cap PO HS 08/22/20 10/05/20 History [Lotrel 10-20 MG] Aspirin 81 mg PO DAILY #30 chewable 08/23/20 10/05/20 Rx Allergies Allergy/AdvReac Type Severity Reaction Status Date / Time No Known Allergies Allergy Verified 10/05/20 14:39 Surgical - Exam - General well developed, well nourished, no distress, no pain - Respiratory normal expansion, normal respiratory effort - Psychiatric oriented to time, oriented to person, oriented to place Assessment and Plan Assessment: 75 yo male with hx of right sided renal mass -OR for robotic assisted laproscopic partial nephrectomy on right
[~2020-10-07 08:17] MED LIST: DEXAMETHASONE SOD PHOSPHATE 4 MG/ML 1 ML VIAL IV ONE; HEPARIN SODIUM,PORCINE/PF 5,000 UNIT/0.5 ML SYRINGE SQ PRN; MIDAZOLAM 2 MG/2 ML VIAL IV PRN; ONDANSETRON 4 MG/2 ML VIAL IVP ONE
[2020-10-07] MEDS ORDERED: MIDAZOLAM 2 MG/2 ML VIAL IV ONE (09:36)
[2020-10-07] MEDS ORDERED: fentaNYL (PF) 50 MCG/ML 2 ML AMP IV ONE (09:36)
[2020-10-07] MEDS ORDERED: NEOSTIGMINE 1 MG/ML 10 ML VIAL ONE (09:53)
[2020-10-07] MEDS ORDERED: LIDOCAINE 1% INJ 10MG/ML (20 ML MDV) ONE (09:53)
[2020-10-07] MEDS ORDERED: ePHEDrine SULFATE/0.9% NACL/PF 50 MG/5 ML SYRINGE IV ONE (09:53)
[2020-10-07] MEDS ORDERED: ROCURONIUM 10 MG/ML (5 ML VIAL) IV ONE (09:53)
[2020-10-07] MEDS ORDERED: MIDAZOLAM 2 MG/2 ML VIAL ONE (09:53)
[2020-10-07] MEDS ORDERED: GLYCOPYRROLATE 0.2 MG/ML 2 ML VIAL ONE (09:53)
[2020-10-07] MEDS ORDERED: fentaNYL (PF) 50 MCG/ML 2 ML AMP ONE (09:53)
[2020-10-07] MEDS ORDERED: ROPIVACAINE 5 MG/ML 30 ML VIAL ONE (09:53)
[2020-10-07] MEDS ORDERED: HYDROmorphone (PF) 1 MG/ML ONE (09:53)
[2020-10-07] MEDS ORDERED: PROPOFOL 10 MG/ML 20 ML VIAL IV ONE ×2 (09:53)
[2020-10-07] MEDS ORDERED: MANNITOL 25% 12.5 GM/50 ML VIAL ONE (09:53)
--- NOTE | 2020-10-07 09:54 | P.ANPRN ---
Procedure Note - Anesthesia - Nerve Block Performed Right Erector Spinae Single Time Out Performed: Yes ([id number]) Date of Procedure: 10/07/20 Procedure Start Time: 09:36 Procedure Stop Time: 09:46 Location of Patient: PreOp Indication: Acute Post-Operative Pain, Analgesia, Requested by Surgeon Specifically requested for management of pain by : Edi Schultz Sedation Type: Sedate with meaningful contact maintained Preparation: Sterile Prep Position: Left Lateral Catheter: None Needle Types: Pajunk Needle Gauge: 20 Ultrasound used to visualize needle placement: Yes Ultrasound used to observe medication spread: Yes Injectate: 0.5% Ropivacaine (see comment for volume) (20 mL) Blood Aspirated: No Pain Paresthesia on Injection Noted: No Resistance on Injection: Normal Events: Uneventful and Well Tolerated
[2020-10-07] MEDS: LACTATED RINGERS 1,000 ML IV SCH ×2 (09:56→22:43)
[2020-10-07] MEDS ORDERED: LACTATED RINGERS 1,000 ML IV ONE ×3 (09:57→13:14)
[2020-10-07] MEDS ORDERED: BUPIVACAINE (PF) 0.25% 30 ML VIAL SQ ONE (10:50)
--- NOTE | 2020-10-07 13:12 | P.OP ---
Date of Procedure: 10/07/20 Preoperative Diagnosis: Right Renal mass Postoperative Diagnosis: Same Procedure(s) Performed: Robotic-assisted laparoscopic partial nephrectomy on the right Implants: none Anesthesia: SALLIE Surgeon: Edi Schultz Newspaper Or Periodical Editor #1: Alexandra Edmond Estimated Blood Loss (ml): 200 Pathology: other (right renal mass) Condition: stable Disposition: PACU Indications for Procedure: This is a 75 yo male hx o 4.3 cm right sided renal mass. Discussed with him based on review of image is concerning for renal cell carcinoma. The option of robotic radical vs partial nephrectomy was discussed with her. Risk and benefit of each approach were discussed with her. He agreed to proceed with robotic partial nephrectomy. Discussed risk of bleeding, infection, injury to nearby organ, potential of conversion to radical nephrectomy. Discussed potential need for dialysis if radical nephrectomy is performed. I also discussed with her the risk from anesthesia. He understood all the risk and agreed to proceed Operative Findings: Right renal mass in the upper pole, in close proximity to the renal vein Description of Procedure: The patient was taken to the operating room . General anesthesia was induced. He was prepped and draped in sterile fashion, and was placed in modified flank position . All pressure points were padded. The abdominal insufflation was achieved with the Veress needle. A 8 mm camera port was placed. Robotic trocars and human services assistant ports were placed under direct vision. Lysis of adhesions were performed laparoscopically to allow for placement of liver retractor. A 5 mm liver retractor was placed. . The robot was docked into place. The colon was mobilized medially by incising along the white line of Toldt. Next the duodenum was kocherized. At this time the vena cava was exposed. Next the ureter was retracted anteriorly off the psoas muscle. Dissection proceeded cranially towards the renal hilum. The renal artery and vein were visualized and diss ected in preparation for clamping. There was two renal arteries. Next the kidney was defated and tumor was exposed. the ureter and mobilized to allow for tumor excision. . Next both arteries were clamped using two bulldogs. The tumor was excised sharply, the tumor was close proximity to the renal vein The defect was closed in 2 layers using 3-0V lock for the deeper tissue. Given the close proximity to the renal vein, a Surgicel and Tisseel was applied to the defect. Next the outer layers was closed 2-0V lock for the capsular closure, ensuring that the surgeons he is on the defect. Sliding clip technique was performed. The clamps were removed, total clamp time was 25 minutes. Hemostatic agents were placed on the surgical bed. A 10-[place] flat GLORIA was placed through the right lower quadrant, through the robotic port. Fascia was closed with 0 vicryl. Skin was closed with subcuticular sutures and dermabond. The patient was awoken from general anesthesia in stable condition. Please refer to the final pathology report for final diagnosis
[2020-10-07] MEDS: HYDROmorphone 0.5 MG/0.5 ML SYRINGE IVP PRN ×3 (13:58→14:21)
[2020-10-07] MEDS: D5-0.45% NACL WITH KCL 20MEQ/L 1,000 ML IV SCH ×2 (15:31→22:42)
[2020-10-07] MEDS: methocarbamoL 750 MG TAB PO SCH ×3 (15:57→22:43)
[2020-10-07] MEDS: HYDROcodone/APAP 5-325MG 1 EACH TAB PO PRN ×2 (16:28→20:53)
[2020-10-07] MEDS ORDERED: HYDROmorphone 0.5 MG/0.5 ML SYRINGE IVP PRN (16:37)
[2020-10-07] MEDS: lisinopriL 20 MG TAB PO SCH (20:53)
[2020-10-07] MEDS: ATORVASTATIN 10 MG TAB PO SCH (20:53)
[2020-10-07] MEDS: amLODIPine 10 MG TAB PO SCH (20:53)
[2020-10-07 21:26] LABS: Basophils % (A) 0 %; Eosinophils % (A) 0 %; HCT 40.8 % (39.0-53.0); HGB 13.6 gm/dL (13.0-17.5); Lymphocytes # (A) 0.5 k/uL (1.0-4.8); Lymphocytes % (A) 5 %; MCH 30.1 pg (25.0-35.0); MCHC 33.3 g/dL (31.0-37.0); MCV 90.4 fL (80.0-100.0); Mean Platelet Volume 6.8; Monocytes # (A) 0.5 k/uL (0-1.0); Monocytes % (A) 5 %; Neutrophils # (A) 8.9 k/uL (1.3-7.7); Neutrophils % (A) 90 %; Platelet Count 183 k/uL (150-450); RBC 4.51 m/uL (4.30-5.90); RDW 13.4 % (11.5-15.5); WBC 9.9 k/uL (3.8-10.6)
[2020-10-07 21:30] LABS: Calcium 9.3 mg/dL (8.4-10.2); Potassium 4.7 mmol/L (3.5-5.1)
[2020-10-08] MEDS: HYDROcodone/APAP 5-325MG 1 EACH TAB PO PRN ×4 (03:59→19:32)
[2020-10-08 05:36] LABS: HCT 37.6 % (39.0-53.0); HGB 12.8 gm/dL (13.0-17.5); MCH 30.9 pg (25.0-35.0); MCHC 34.2 g/dL (31.0-37.0); MCV 90.3 fL (80.0-100.0); Mean Platelet Volume 7.2; Platelet Count 200 k/uL (150-450); RBC 4.16 m/uL (4.30-5.90)
[2020-10-08] MEDS: D5-0.45% NACL WITH KCL 20MEQ/L 1,000 ML IV SCH ×3 (07:25→22:18)
[2020-10-08] MEDS: methocarbamoL 750 MG TAB PO SCH ×4 (07:41→21:33)
--- NOTE | 2020-10-08 12:41 | P.PN ---
Progress Note - Text Progress Note Date: 10/08/20 S/P Robotic partial nephrectomy POD #1. Doing well, GLORIA put out 250 serosing, non-distended, soft, tenderness along incision, no ecchymosis along flank S/P robotic partial nephrectomy POD #1 -Pain control -Ambulate - Trend CBC -Given complexity of renal closure, and high risk of bleeding, will continue to hold Heparin
[2020-10-08] MEDS: PANTOPRAZOLE 40 MG TABLET PO SCH (13:25)
[2020-10-08 17:55] LABS: Basophils % (A) 0 %; Eosinophils % (A) 0 %; HCT 36.7 % (39.0-53.0); HGB 12.9 gm/dL (13.0-17.5); Lymphocytes # (A) 1.1 k/uL (1.0-4.8); Lymphocytes % (A) 9 %; MCH 31.9 pg (25.0-35.0); MCHC 35.2 g/dL (31.0-37.0); MCV 90.9 fL (80.0-100.0); Monocytes # (A) 1.1 k/uL (0-1.0); Monocytes % (A) 8 %; Neutrophils # (A) 10.4 k/uL (1.3-7.7); Neutrophils % (A) 82 %; Platelet Count 189 k/uL (150-450); RBC 4.04 m/uL (4.30-5.90); RDW 13.5 % (11.5-15.5); WBC 12.8 k/uL (3.8-10.6)
[2020-10-08] MEDS: ATORVASTATIN 10 MG TAB PO SCH (19:32)
[2020-10-08] MEDS: lisinopriL 20 MG TAB PO SCH (19:32)
[2020-10-08] MEDS: amLODIPine 10 MG TAB PO SCH (19:32)
[2020-10-09] MEDS: HYDROcodone/APAP 5-325MG 1 EACH TAB PO PRN ×2 (00:32→08:09)
[2020-10-09 06:33] LABS: Basophils % (A) 0 %; Eosinophils # (A) 0.1 k/uL (0-0.7); Eosinophils % (A) 1 %; HCT 38.3 % (39.0-53.0); HGB 13.1 gm/dL (13.0-17.5); Lymphocytes % (A) 10 %; MCH 30.9 pg (25.0-35.0); MCHC 34.2 g/dL (31.0-37.0); MCV 90.4 fL (80.0-100.0); Mean Platelet Volume 7.1; Monocytes # (A) 0.9 k/uL (0-1.0); Monocytes % (A) 9 %; Neutrophils # (A) 7.9 k/uL (1.3-7.7); Neutrophils % (A) 79 %; Platelet Count 160 k/uL (150-450); RBC 4.24 m/uL (4.30-5.90); RDW 13.5 % (11.5-15.5)
[2020-10-09] MEDS: methocarbamoL 750 MG TAB PO SCH ×2 (08:10→13:27)
[2020-10-09] MEDS: PANTOPRAZOLE 40 MG TABLET PO SCH (08:10)
[2020-10-09] MEDS: LACTATED RINGERS 1,000 ML IV SCH (08:11)
[2020-10-09] MEDS: D5-0.45% NACL WITH KCL 20MEQ/L 1,000 ML IV SCH ×2 (08:11→13:25)
[2020-10-09 12:04] VITALS: BP 145/71; PULSE 68; RESP 18; TEMP 98.8
--- NOTE | 2020-10-09 12:52 | P.DS ---
Providers Attending physician: Edi Schultz MD Primary care physician: Clifton Pearson MD Hospital Course: Mr Julio is a 75 yo male with hx of right sided renal mass, he underwent robotic assisted laproscopic partial nephrectomy on 10/07. Please see Op note dated 10/07 for full surgery details. He was admitted to the floor post operatively. He did well in the post operative period. His hgb remained stable. His Nolasco catheter and GLORIA drained was removed on POD #2. He was discharged home on POD #2. At time of discharge he was tolerating a diet, ambulating and pain was well controlled Plan - Discharge Summary Discharge Rx Participant: No New Discharge Prescriptions: New Ibuprofen 600 mg PO Q8H PRN #30 tab PRN Reason: Pain HYDROcodone/APAP 5-325MG [[place] 5-325] 1 tab PO Q6HR PRN 3 Days #10 tab PRN Reason: Pain No Action amLODIPine BESYLATE/BENAZEPRIL [Lotrel 10-20 MG] 1 cap PO HS Atorvastatin Calcium [Lipitor] 10 mg PO HS Aspirin 81 mg PO DAILY #30 chewable Discharge Medication List Atorvastatin Calcium [Lipitor] 10 mg PO HS 08/22/20 [History] amLODIPine BESYLATE/BENAZEPRIL [Lotrel 10-20 MG] 1 cap PO HS 08/22/20 [History] Aspirin 81 mg PO DAILY #30 chewable 08/23/20 [Rx] HYDROcodone/APAP 5-325MG [[place] 5-325] 1 tab PO Q6HR PRN 3 Days #10 tab 10/07/20 [Rx] Ibuprofen 600 mg PO Q8H PRN #30 tab 10/07/20 [Rx] Activity/Diet/Wound Care/Special Instructions: No heavy lifting or straining for 4 weeks You may shower but no baths You may resume her aspirin 7 days Discharge Disposition: HOME SELF-CARE
== END 2020-10-09 14:23 | disposition home or self-care (01) ==
LOC: OR 08:17 → 5NMEDONC 14:22 → OR 10-09 14:23
PROVIDERS: ATTEND Urology
DX: C64.1 Malignant neoplasm of right kidney, except renal pelvis (principal); I10 Essential (primary) hypertension; Z20.822 Contact with and (suspected) exposure to COVID-19; I69.351 Hemiplegia and hemiparesis following cerebral infarction affecting right dominant side; Z98.42 Cataract extraction status, left eye; Z98.41 Cataract extraction status, right eye; Z98.890 Other specified postprocedural states; Z82.3 Family history of stroke; Z79.82 Long term (current) use of aspirin; Z79.899 Other long term (current) drug therapy
CPT/HCPCS: 64999; 76942; 80048; 85025 ×3; 85027; 88307; 87635; 50543; C1762; J2250; J1100; J2710; J0690; J2405; J2001; J2150; J3010; J1170 ×2; J2795; J2704; J1644; 86850; 86900; 86901

== ENCOUNTER → 2021-06-01 | Outpatient (CLI) | payer MEDICARE ==
--- NOTE | 2021-06-01 15:37 | CT ---
EXAMINATION TYPE: CT chest abdomen w con DATE OF EXAM: 06/01/2021 COMPARISON: CT dated 08/26/2020 HISTORY: Renal cell cancer, history of right partial nephrectomy. CT DLP: 1073 mGycm. Automated Exposure Control for Dose Reduction was Utilized. CONTRAST: CT scan of the thorax, abdomen is performed with IV Contrast, patient injected with 100ml mL of Isovu e 300. FINDINGS: LUNGS: The lungs are grossly clear, there is no concerning parenchymal mass or nodule identified. T here is no pleural effusion or pneumothorax seen. The tracheobronchial tree is patent. MEDIASTINUM: There are no greater than 1 cm hilar or mediastinal lymph nodes. No pericardial effusi on is seen. OTHER: There are coronary artery calcifications present LIVER/GB: No significant abnormality is appre ciated. PANCREAS: No significant abnormality is seen. SPLEEN: No significant abnormality is seen. ADRENALS: No significant abnormality is seen. KIDNEYS: There is been interval excision of the patient's right renal mass, some low-density persists at the site likely postoperative in nature, no hydronephrosis, parapelvic cysts again noted within t he left kidney BOWEL: No significant abnormality is seen. GENITAL ORGANS: No gross abnormality seen. LYMPH NODES: No greater than 1cm abdominal or pelvic lymph nodes are appreciated. OSSEOUS STRUCTURES: No significant abnormality is seen. OTHER: No retroperitoneal adenopathy evident. IMPRESSION: Postop changes
== END | disposition home or self-care (01) ==
LOC: RADCTMAIN 12:47
PROVIDERS: ATTEND Urology
DX: Z90.5 Acquired absence of kidney (principal); Z85.528 Personal history of other malignant neoplasm of kidney
CPT/HCPCS: 82565; 84520; 71260; 74160; 36415; Q9967

== ENCOUNTER → 2021-12-14 | Outpatient (CLI) | payer MEDICARE ==
--- NOTE | 2021-12-15 09:49 | MR ---
EXAMINATION TYPE: MR knee LT wo con DATE OF EXAM: 12/14/2021 COMPARISON: None HISTORY: Left knee pain. TECHNIQUE: Multiplanar, multisequence imaging of the left knee is performed without IV contrast. FINDINGS: MEDIAL MENISCUS: Posterior meniscal tear. Anterior horn is intact. LATERAL MENISCUS: Anterior and posterior horns are intact without tear. CRUCIATE LIGAMENTS: Increased signal within the ACL is felt to reflect strain. No evidence for full-t hickness tear or partial tear. COLLATERAL LIGAMENTS: The medial collateral ligament and lateral collateral ligament complex are inta ct and unremarkable. EXTENSOR MECHANISM: Visualized quadriceps and patellar tendons are intact. EFFUSION: No significant suprapatellar joint effusion. POPLITEAL CYST: 3.3 x 1.1 cm Brian's cyst. TRICOMPARTMENT SPACES: Moderate to severe narrowing medial tibiofemoral joint space with cartilaginou s thinning and underlying bone marrow edema. Moderate narrowing of the lateral tibiofemoral joint spa ce. Severe narrowing patellofemoral joint space with changes of chondromalacia patella. BONE MARROW SIGNAL: Bone marrow edema medial femoral condyle and medial tibial plateau. Subchondral c yst formation. OTHER: No additional significant abnormality is appreciated. IMPRESSION: 1. Advanced changes of osteoarthritis. 2. Tear posterior horn medial meniscus. 3. ACL strain without full-thickness tear. 4. Brian's cyst.
== END | disposition home or self-care (01) ==
LOC: RADMRIMAIN 18:17
PROVIDERS: ATTEND Family Medicine
DX: M17.12 Unilateral primary osteoarthritis, left knee (principal); M23.322 Other meniscus derangements, posterior horn of medial meniscus, left knee; M71.22 Synovial cyst of popliteal space [Baker], left knee

== ENCOUNTER 2022-01-23 03:10 | Emergency (ER) | payer MEDICARE ==
[2022-01-23 03:18] VITALS: BP 164/90; PULSE 79; RESP 22; TEMP 97.8
[2022-01-23 03:28] LABS: Glucose,Whole Blood 118 mg/dL (70-110)
--- NOTE | 2022-01-23 03:54 | ED ---
Upper Extremity HPI - General Chief Complaint: Neuro Symptoms/Deficit Stated Complaint: Extremity numbness Time Seen by Provider: 01/23/22 03:25 Source: patient, family Mode of arrival: ambulatory Limitations: no limitations - History of Present Illness Initial Comments: Impression presents with numbness, tingling, shooting pains into the left hand and wrist area which seems to radiate up toward the upper arm. This before on for 2 weeks. Patient has been working on his deck and has been both working with wood as well as painting. This is exacerbating the pain. Patient states she's been waking up at night with increased pain. Patient denying any chest pain or shortness of breath. Patient states pain is exacerbated by movement, has been waking up at night, patient also describes a stinging sensation when he goes to pick something up. No headache, no fever or chills, no changes in vision or hearing, no sore throat or difficulty with speech, no neck pain, no chest pain or shortness of breath, no abdominal pain, no nausea or vomiting, no changes in urination or bowel movements, no skin rashes or lesions. Patient recently saw a chiropractor for cervical manipulation which did not improve the pain at all. Past medical, surgical, social, and family history reviewed. MD Complaint: Injury to:: left, wrist Onset/Timin -: week(s) Other Injuries: none Handedness: right Worsens With: movement of extremity, other (Activity, working with the left hand) - Related Data Home Medications Medication Instructions Recorded Confirmed Atorvastatin Calcium [Lipitor] 10 mg PO HS 08/22/20 10/05/20 amLODIPine BESYLATE/BENAZEPRIL 1 cap PO HS 08/22/20 10/05/20 [Lotrel 10-20 MG] Previous Rx's Medication Instructions Recorded Aspirin 81 mg PO DAILY #30 chewable 08/23/20 HYDROcodone/APAP 5-325MG [[place] 1 tab PO Q6HR PRN 3 Days #10 tab 10/07/20 5-325] Ibuprofen 600 mg PO Q8H PRN #30 tab 10/07/20 methylPREDNISolone Dose Pack 4 mg PO DIRECTED #21 tab 01/23/22 [Medrol Dose Pack] Allergies Allergy/AdvReac Type Severity Reaction Status Date / Time No Known Allergies Allergy Verified 01/23/22 03:18 Review of Systems ROS Statement: Those systems with pertinent positive or pertinent negative responses have been documented in the HPI. ROS Other: All systems not noted in ROS Statement are negative. Past Medical History Past Medical History: Hyperlipidemia, Hypertension Additional Past Medical History / Comment(s): Stroke History of Any Multi-Drug Resistant Organisms: None Reported Past Surgical History: Orthopedic Surgery Additional Past Surgical History / Comment(s): Lumbar surgery, cysto/lithotripsy, pyloric sphincter surgery as baby, R rotator cuff surgery, colonoscopy, bilateral cataract removal., kidney surgery Past Anesthesia/Blood Transfusion Reactions: No Reported Reaction Past Psychological History: No Psychological Hx Reported Smoking Status: Never smoker Past Alcohol Use History: None Reported Past Drug Use History: None Reported - Past Family History Mother Family Medical History: CVA/TIA Additional Family Medical History / Comment(s): Mother had a CVA. Father Family Medical History: Unable to Obtain Additional Family Medical History / Comment(s): Pt cannot recall father's medical hx General Exam - General Exam Comments Initial Comments: Cranial nerves II through XII are intact. Patient appears to have no focal neurologic deficit other than the pain related to the distribution of the left left median nerve. Vital signs reviewed. Limitations: no limitations General appearance: alert, in no apparent distress Head exam: Present: atraumatic, normocephalic, normal inspection Eye exam: Present: normal appearance, PERRL, EOMI. Absent: scleral icterus, conjunctival injection, periorbital swelling ENT exam: Present: normal exam, mucous membranes moist Neck exam: Present: normal inspection, full ROM. Absent: tenderness, meningismus, lymphadenopathy Respiratory exam: Present: normal lung sounds bilaterally. Absent: respiratory distress, wheezes, rales, rhonchi, stridor Cardiovascular Exam: Present: regular rate, normal rhythm, normal heart sounds. Absent: systolic murmur, diastolic murmur, rubs, gallop, clicks GI/Abdominal exam: Present: soft, normal bowel sounds. Absent: distended, tenderness, guarding, rebound, rigid Extremities exam: Present: normal inspection, full ROM, normal capillary refill. Absent: tenderness, pedal edema, joint swelling, calf tenderness Left Neuro motor exam: Present: wrist extension intact, thumb opposition intact, thumb IP flexion intact, thumb adduction intact, fingers 2-5 abduction intact Neurosensory exam: Present: radial nerve intact, ulnar nerve intact, other (Patient has good sensation to pinprick. Does have some diminished sensation to light touch. Some weakness involving the left hand. Positive Tinel's and Phalen's sign.). Absent: median nerve intact (Patient has physical exam findings consistent with left median neuropathy to include a positive Tinel's and Phalen's test.) Vascular: Present: normal capillary refill. Absent: vascular compromise, Pallo, pulse deficit radial art, pulse deficit ulnar art Back exam: Present: normal inspection Neurological exam: Present: alert, oriented X3, CN II-XII intact Psychiatric exam: Present: normal affect, normal mood Skin exam: Present: warm, dry, intact, normal color. Absent: rash Course Vital Signs 01/23/22 03:11 Temperature 97.8 F Pulse Rate 79 Respiratory 22 Rate Blood Pressure 164/90 O2 Sat by Pulse 96 Oximetry Procedures - Orthopedic Splinting/Casting Injury #1 Side: left Upper Extremity Injury Location: short arm Upper Extremity Immobilizer: volar splint (Short arm) Additional Comments: Vascular status intact. Medical Decision Making - Medical Decision Making Patient's symptomology consistent with left median neuropathy, possibly combination neuropathy, patient will require splinting, especially at night, to discuss treating with a Medrol Dosepak. She'll need to follow-up with his orthopedic physician. Symptomology not consistent with CVA. Patient was also seen and assessed by the ED attending physician. The case was discussed in detail with ED attending physician. Presentation, findings, treatment plan discussed in detail. Patient was told to return to the ER for any signs or symptoms worsen. Told to return immediately if any other problems arise. All questions answered. Treatment plan discussed. Patient in agreement Every effort has been made to ensure accuracy of this dictation. However, due to the limitations of electronic medical records and dictation devices, errors in charting still occur. Supervising physician, Dr. Ramirez - Lab Data Lab Results 01/23/22 Range/Units 03:26 POC Glucose (mg/dL) 118 H (70-110) mg/dL POC Glu Cut Off Man ID Genevieve Palomares Disposition Clinical Impression: Left median nerve neuropathy Disposition: HOME SELF-CARE Condition: Stable Instructions (If sedation given, give patient instructions): Paresthesia (ED) Additional Instructions: Call Saturday to set up a follow-up appointment with Dr. Romero. Follow-up with your regular physician as directed. Return to the ER immediately if any symptoms worsen, new symptoms arise, or any other problems develop. Symptoms consistent with carpal tunnel syndrome. Is patient prescribed a controlled substance at d/c from ED?: No Referrals: Spencer Romero MD [STAFF PHYSICIAN] - As Soon As Possible Time of Disposition: 03:45
[2022-01-23] MEDS ORDERED: predniSONE 20 MG TAB PO STA (04:06)
[2022-01-23] MEDS ORDERED: ACETAMINOPHEN TAB 500 MG TAB PO STA (04:07)
== END 2022-01-23 04:13 | disposition home or self-care (01) ==
LOC: EC 03:10
DX: G62.9 Polyneuropathy, unspecified (principal); E78.5 Hyperlipidemia, unspecified; I10 Essential (primary) hypertension; Z79.82 Long term (current) use of aspirin; Z79.899 Other long term (current) drug therapy
CPT/HCPCS: 36415; 99284; 29125; J7512

== ENCOUNTER → 2022-06-15 | Outpatient (CLI) | payer MEDICARE ==
--- NOTE | 2022-06-15 15:42 | CT ---
EXAMINATION TYPE: CT chest abdomen w con DATE OF EXAM: 06/15/2022 INDICATION: hx of RT kidney ca. COMPARISON: 06/01/2021 CT DLP: 683.80 mGycm CONTRAST: Performed with Oral Contrast and with IV Contrast, patient injected with 70 mL of Isovue 300. TECHNIQUE: Axial images at 5 mm thick sections. Reconstructed images in the coronal plane. Delayed images through the kidneys. FINDINGS: CT CHEST: Portion of the thyroid visualized is normal. No suspicious lung nodules or focal infiltrates are present. Very minimal compressive atelectasis may be within the dependent portions of the lung bases. No enlarged mediastinal or hilar adenopathy is evident. The ascending aorta diameter at the level of the main pulmonary artery is 4.0 cm. The main pulmonary artery diameter at the bifurcation is 2.6 cm. Coronary artery calcification is noted. CT ABDOMEN: Liver: Normal Spleen: Normal Pancreas: Normal Adrenal glands: The adrenal glands are normal. Gallbladder: Normal Kidneys: There is some chronic loss of cortex along the anterior mid right renal cortex. This has a s imilar appearance to the comparison. No underlying mass is evident.. No hydronephrosis is present. Peripelvic cysts are present more notable on the left. No hydroureter is evident. Delayed images were obtained through the kidneys, which remain unremarkable. Aorta: Vascular calcification is within the aorta. Inferior vena cava: Normal. Loops of bowel within the abdomen and pelvis are normal. There are loops of bowel which are incom pletely distended or lack oral contrast limiting their evaluation. Appendix: Portion within the field of view is Normal as visualized. IMPRESSIONS: 1. Stable appearance bilateral kidneys. 2. No recurrent renal mass or metastatic disease evident.
== END | disposition home or self-care (01) ==
LOC: RADCTMAIN 12:46
PROVIDERS: ATTEND Urology
DX: C64.1 Malignant neoplasm of right kidney, except renal pelvis (principal)
CPT/HCPCS: 82565; 84520; 71260; 74160; 36415; Q9967

== ENCOUNTER 2022-11-21 18:05 | Emergency (ER) | payer MEDICARE ==
[2022-11-21 18:41] VITALS: TEMP 98.5
[2022-11-21 19:26] LABS: Basophils % (A) 0 %; Eosinophils # (A) 0.1 k/uL (0-0.7); Eosinophils % (A) 3 %; HCT 41.2 % (39.0-53.0); HGB 14.1 gm/dL (13.0-17.5); Lymphocytes # (A) 1.3 k/uL (1.0-4.8); Lymphocytes % (A) 26 %; MCHC 34.2 g/dL (31.0-37.0); MCV 90.7 fL (80.0-100.0); Mean Platelet Volume 7.4; Monocytes # (A) 0.3 k/uL (0-1.0); Monocytes % (A) 6 %; Neutrophils # (A) 3.2 k/uL (1.3-7.7); Neutrophils % (A) 63 %; Platelet Count 226 k/uL (150-450); RBC 4.54 m/uL (4.30-5.90); RDW 13.6 % (11.5-15.5)
[2022-11-21 19:37] LABS: ALT 24 U/L (4-49); AST 27 U/L (17-59); African American GFR (CKD) 65 (>60 ml/min/1.73 sqM); Albumin 3.9 g/dL (3.5-5.0); Alkaline Phosphatase 105 U/L (38-126); Anion Gap 9 mmol/L; Blood Urea Nitrogen 25 mg/dL (9-20); Calcium 9.4 mg/dL (8.4-10.2); Carbon Dioxide 24 mmol/L (22-30); Chloride 104 mmol/L (98-107); Creatine Kinase 79 U/L (55-170); Glucose 136 mg/dL (74-99); Non-African American GFR(CKD) 57 (>60 ml/min/1.73 sqM); Potassium 3.9 mmol/L (3.5-5.1); Sodium 137 mmol/L (137-145); Total Bilirubin 0.5 mg/dL (0.2-1.3); Total Protein 6.3 g/dL (6.3-8.2)
[2022-11-21 19:40] LABS: Partial Thromboplastin Time 23.8 sec (22.0-30.0); Prothrombin Time 10.4 sec (9.0-12.0)
--- NOTE | 2022-11-21 20:07 | CT ---
EXAMINATION TYPE: CT brain wo con CT DLP: 1173.4 mGycm, Automated exposure control for dose reduction was used. DATE OF EXAM: 11/21/2022 7:52 PM COMPARISON: 05/29/2013. CLINICAL INDICATION:Male, 77 years old with history of Neuro deficit, acute, stroke suspected, Histor y of TIA. Left hand weakness- at night time. TECHNIQUE: Brain: Axial CT images of the brain were obtained with coronal and sagittal reformats created and rev iewed. Contrast used: None. Oral contrast used: None. FINDINGS: Brain: Extra-axial spaces: No abnormal extra-axial fluid collections. Ventricular system: Within normal limits Cerebral parenchyma: Remote left parietal/occipital lobe injuries with encephalomalacia. Diffuse whit e matter changes throughout the left cerebral hemisphere. There is scattered white matter changes are seen in the right cerebral hemisphere. No acute intraparenchymal hemorrhage or mass effect. The rem ainder of the damon-white junctions are well differentiated. Cerebellum: Unremarkable. Mass effect: No evidence of midline shift. Intracranial vasculature: Atherosclerotic calcifications of the intracranial vessels. Soft tissues: Normal. Calvarium/osseous structures: No depressed skull fracture. Paranasal sinuses and mastoid air cells: Mild scattered paranasal sinus disease. Visualized orbits: Bilateral aphakia IMPRESSION: Remote left parietal/occipital lobe injury with encephalomalacia. No evidence for acute/subacute CVA. Consider MRI for further more sensitive evaluation for stroke.
--- NOTE | 2022-11-21 20:49 | XR ---
EXAMINATION TYPE: XR hand complete LT DATE OF EXAM: 11/21/2022 8:27 PM INDICATION: Patient age:Male; 77 years old; Reason for study: pain, no injury; PHH. COMPARISON: None TECHNIQUE: Frontal, lateral and oblique views of the left hand were obtained. FINDINGS: Normal alignment of the visualized joints. No acute osseous pathology is identified. No e vidence of soft tissue swelling. Multifocal osteoarthrosis with joint space narrowing most pronounced distal interphalangeal joints wh ich is mild. IMPRESSION: 1. No acute osseous pathology. 2. Mild multifocal osteoarthrosis.
[2022-11-21] MEDS ORDERED: DEXAMETHASONE SOD PHOSPHATE 10 MG/ML 1 ML VIAL IVP STA (20:50)
[2022-11-21 21:09] VITALS: BP 168/77; PULSE 60; RESP 16
--- NOTE | 2022-11-21 21:10 | ED ---
General Adult HPI - General Chief complaint: Neuro Symptoms/Deficit Stated complaint: L hand numbness Time Seen by Provider: 11/21/22 20:08 Source: patient, family Mode of arrival: ambulatory Limitations: no limitations - History of Present Illness Initial comments: Patient is a 77-year-old male presenting with concerns for left hand numbness. Patient states that for the last 7 days in the evening his left hand starts to go numb, when he wakes up in the morning he has a difficult time using the hand due to cramping pain. Throughout the day symptoms improve and patient regains full use of the hand. No new injury or trauma. No headache, vision or hearing changes, nausea, vomiting, dizziness, confusion, chest pain, difficulty breathing, swelling. - Related Data Home Medications Medication Instructions Recorded Confirmed Atorvastatin Calcium [Lipitor] 10 mg PO HS 08/22/20 10/05/20 amLODIPine BESYLATE/BENAZEPRIL 1 cap PO HS 08/22/20 10/05/20 [Lotrel 10-20 MG] Previous Rx's Medication Instructions Recorded Aspirin 81 mg PO DAILY #30 chewable 08/23/20 HYDROcodone/APAP 5-325MG [[place] 1 tab PO Q6HR PRN 3 Days #10 tab 10/07/20 5-325] Ibuprofen 600 mg PO Q8H PRN #30 tab 10/07/20 methylPREDNISolone Dose Pack 4 mg PO DIRECTED #21 tab 01/23/22 [Medrol Dose Pack] Allergies Allergy/AdvReac Type Severity Reaction Status Date / Time No Known Allergies Allergy Verified 01/23/22 03:18 Review of Systems ROS Statement: Those systems with pertinent positive or pertinent negative responses have been documented in the HPI. ROS Other: All systems not noted in ROS Statement are negative. Past Medical History Past Medical History: CVA/TIA, Hyperlipidemia, Hypertension Additional Past Medical History / Comment(s): Stroke History of Any Multi-Drug Resistant Organisms: None Reported Past Surgical History: Orthopedic Surgery Additional Past Surgical History / Comment(s): Lumbar surgery, cysto/ lithotripsy, pyloric sphincter surgery as baby, R rotator cuff surgery, colonoscopy, bilateral cataract removal., kidney surgery Past Anesthesia/Blood Transfusion Reactions: No Reported Reaction Past Psychological History: No Psychological Hx Reported Smoking Status: Never smoker Past Alcohol Use History: None Reported Past Drug Use History: None Reported - Past Family History Mother Family Medical History: CVA/TIA Additional Family Medical History / Comment(s): Mother had a CVA. Father Family Medical History: Unable to Obtain Additional Family Medical History / Comment(s): Pt cannot recall father's medical hx General Exam Limitations: no limitations General appearance: alert, in no apparent distress Head exam: Present: atraumatic, normocephalic, normal inspection Eye exam: Present: normal appearance, PERRL, EOMI. Absent: scleral icterus, conjunctival injection, periorbital swelling Neck exam: Present: normal inspection, full ROM Respiratory exam: Present: normal lung sounds bilaterally. Absent: respiratory distress, wheezes, rales, rhonchi, stridor Cardiovascular Exam: Present: regular rate, normal rhythm, normal heart sounds. Absent: systolic murmur, diastolic murmur, rubs, gallop, clicks Extremities exam: Present: normal inspection, full ROM, normal capillary refill. Absent: tenderness Neurological exam: Present: alert, oriented X3, CN II-XII intact Expanded Patient oriented to: Present: person, place, time Speech: Present: fluid speech Cranial nerves: EOM's Intact: Normal Cerebellar function: Finger to Nose: Normal Motor strength exam: RUE: 5, LUE: 5, RLE: 5, LLE: 5 Eye Response: (4) open spontaneously Motor Response: (6) obeys commands Verbal Response: (5) oriented Van Total: 15 Psychiatric exam: Present: normal affect, normal mood Skin exam: Present: warm, dry, intact, normal color. Absent: rash Course Vital Signs 11/21/22 11/21/22 18:38 21:00 Temperature 98.5 F Pulse Rate 58 L 60 Respiratory 20 16 Rate Blood Pressure 183/96 168/77 O2 Sat by Pulse 96 98 Oximetry EKG Findings - EKG Comments: EKG Findings:: Sinus bradycardia. Ventricular rate 56. QRS 89. QT 414. QTc 405. No ischemic changes Medical Decision Making - Medical Decision Making Was pt. sent in by a medical professional or institution (, PA, CIVIL GEOTECHNICAL ENGINEER, urgent care, hospital, or penitentiary...) When possible be specific @ -No Did you speak to anyone other than the patient for history (EMS, parent, family, police, friend...)? What history was obtained from this source @ -No Did you review nursing and triage notes (agree or disagree)? Why? @ -I reviewed and agree with nursing and triage notes Were old charts reviewed (outside hosp., previous admission, EMS record, old EKG, old radiological studies, urgent care reports/EKG's, penitentiary records)? Report findings @ -No old charts were reviewed Differential Diagnosis (chest pain, altered mental status, abdominal pain women, abdominal pain men, vaginal bleeding, weakness, fever, dyspnea, syncope, headache, dizziness, GI bleed, back pain, seizure, CVA, palpatations, mental health, musculoskeletal)? @ -Differential CVA Ischemic stroke, hemorrhagic stroke, brain tumor, atypical migraine, Wernicke's encephalopathy, seizure, multiple sclerosis, meningitis, encephalitis, hy poglycemia, Guillain-Bauer, electrolytes disturbance, myasthenia gravis.... This is not meant to be an all-inclusive list EKG interpreted by me (3pts min.). @ -As above X-rays interpreted by me (1pt min.). @ -XRay shows no acute process. There is mild multifocal osteoarthritis CT interpreted by me (1pt min.). @ -CT shows no evidence for acute/subacute CVA. There is a remote left pa rietal/occipital lobe injury with encephalomalacia (patient endorses history of stroke) U/S interpreted by me (1pt. min.). @ -None done What testing was considered but not performed or refused? (CT, X-rays, U/S, labs)? Why? @ -None What meds were considered but not given or refused? Why? @ -None Did you discuss the management of the patient with other professionals (professionals i.e. , PA, CIVIL GEOTECHNICAL ENGINEER, lab, RT, psych nurse, child welfare social worker, director of dietary, teacher, house officer, lining caser)? Give summary @ -No Was smoking cessation discussed for >3mins.? @ -No Was critical care preformed (if so, how long)? @ -No Were there social determinants of health that impacted care today? How? (Homelessness, low income, unemployed, alcoholism, drug addiction, transp ortation, low edu. Level, literacy, decrease access to med. care, custodial, rehab)? @ -No Was there de-escalation of care discussed even if they declined (Discuss DNR or withdrawal of care, Hospice)? DNR status @ -No What co-morbidities impacted this encounter? (DM, HTN, Smoking, COPD, CAD, Cancer, CVA, ARF, Chemo, Hep., AIDS, mental health diagnosis, sleep apnea, morbid obesity)? @ -None Was patient admitted / discharged? Hospital course, mention meds given and route, prescriptions, significant lab abnormalities, going to OR and other pertinent info. @ -77-year-old male presenting with chief complaint of numbness to the left hand that is been ongoing for the last week, numbness starts in the evening patient has pain and difficulty grasping in the morning which then improves throughout the day. Physical examination is unremarkable, no focal neurological deficits. Lab work shows no acute process. CT of the brain shows no acute processes. X-ray of the hand shows evidence of arthritis. Symptoms may be due to paresthesias, patient is trauma dose of Decadron. He is educated on today's findings and instructed to follow-up with his PCP. Follow-up with PCP. Report back to ER with any new or worsening symptoms. Discussed return parameters and answered all questions. Patient conveyed verbal understanding and agreed to the plan. I discussed this case in detail with my attending Dr. Schmitt Undiagnosed new problem with uncertain prognosis? @ -No Drug Therapy requiring intensive monitoring for toxicity (Heparin, Nitro, Insulin, Cardizem)? @ -No Were any procedures done? @ -No Diagnosis/symptom? @ -Paresthesia Acute, or Chronic, or Acute on Chronic? @ -Acute Uncomplicated (without systemic symptoms) or Complicated (systemic symptoms)? @ -Uncomplicated Side effects of treatment? @ -No Exacerbation, Progression, or Severe Exacerbation? @ -No Poses a threat to life or bodily function? How? (Chest pain, USA, OR, pneumonia, PE, COPD, DKA, ARF, appy, cholecystitis, CVA, Diverticulitis, Homicidal, Suicidal, threat to staff... and all critical care pts) @ -No - Lab Data Result diagrams: 11/21/22 19:12 11/21/22 19:12 Lab Results 11/21/22 11/21/22 11/21/22 Range/Units 19:12 19:12 19:12 WBC 5.0 (3.8-10.6) k/uL RBC 4.54 (4.30-5.90) m/uL Hgb 14.1 (13.0-17.5) gm/dL Hct 41.2 (39.0-53.0) % MCV 90.7 (80.0-100.0) fL MCH 31.0 (25.0-35.0) pg MCHC 34.2 (31.0-37.0) g/dL RDW 13.6 (11.5-15.5) % Plt Count 226 (150-450) k/uL MPV 7.4 Neutrophils % 63 % Lymphocytes % 26 % Monocytes % 6 % Eosinophils % 3 % Basophils % 0 % Neutrophils # 3.2 (1.3-7.7) k/uL Lymphocytes # 1.3 (1.0-4.8) k/uL Monocytes # 0.3 (0-1.0) k/uL Eosinophils # 0.1 (0-0.7) k/uL Basophils # 0.0 (0-0.2) k/uL PT 10.4 (9.0-12.0) sec INR 1.0 (<1.2) APTT 23.8 (22.0-30.0) sec Sodium 137 (137-145) mmol/L Potassium 3.9 (3.5-5.1) mmol/L Chloride 104 (98-107) mmol/L Carbon Dioxide 24 (22-30) mmol/L Anion Gap 9 mmol/L BUN 25 H (9-20) mg/dL Creatinine 1.24 (0.66-1.25) mg/dL Est GFR (CKD-EPI)AfAm 65 (>60 ml/min/1.73 sqM) Est GFR (CKD-EPI)NonAf 57 (>60 ml/min/1.73 sqM) Glucose 136 H (74-99) mg/dL Calcium 9.4 (8.4-10.2) mg/dL Total Bilirubin 0.5 (0.2-1.3) mg/dL AST 27 (17-59) U/L ALT 24 (4-49) U/L Alkaline Phosphatase 105 (38-126) U/L Creatine Kinase 79 (55-170) U/L Troponin I (0.000-0.034) ng/mL Total Protein 6.3 (6.3-8.2) g/dL Albumin 3.9 (3.5-5.0) g/dL 11/21/22 Range/Units 19:12 WBC (3.8-10.6) k/uL RBC (4.30-5.90) m/uL Hgb (13.0-17.5) gm/dL Hct (39.0-53.0) % MCV (80.0-100.0) fL MCH (25.0-35.0) pg MCHC (31.0-37.0) g/dL RDW (11.5-15.5) % Plt Count (150-450) k/uL MPV Neutrophils % % Lymphocytes % % Monocytes % % Eosinophils % % Basophils % % Neutrophils # (1.3-7.7) k/uL Lymphocytes # (1.0-4.8) k/uL Monocytes # (0-1.0) k/uL Eosinophils # (0-0.7) k/uL Basophils # (0-0.2) k/uL PT (9.0-12.0) sec INR (<1.2) APTT (22.0-30.0) sec Sodium (137-145) mmol/L Potassium (3.5-5.1) mmol/L Chloride (98-107) mmol/L Carbon Dioxide (22-30) mmol/L Anion Gap mmol/L BUN (9-20) mg/dL Creatinine (0.66-1.25) mg/dL Est GFR (CKD-EPI)AfAm (>60 ml/min/1.73 sqM) Est GFR (CKD-EPI)NonAf (>60 ml/min/1.73 sqM) Glucose (74-99) mg/dL Calcium (8.4-10.2) mg/dL Total Bilirubin (0.2-1.3) mg/dL AST (17-59) U/L ALT (4-49) U/L Alkaline Phosphatase (38-126) U/L Creatine Kinase (55-170) U/L Troponin I <0.012 (0.000-0.034) ng/mL Total Protein (6.3-8.2) g/dL Albumin (3.5-5.0) g/dL Disposition Clinical Impression: Paresthesia Disposition: HOME SELF-CARE Condition: Good Instructions (If sedation given, give patient instructions): Paresthesia (ED) Additional Instructions: Follow-up with PCP. Report back to ER with any new or worsening symptoms. Is patient prescribed a controlled substance at d/c from ED?: No Referrals: Jarocho Barrow MD [Primary Care Provider] - 1-2 days Time of Disposition: 21:09
== END 2022-11-21 21:18 | disposition home or self-care (01) ==
LOC: EC 18:05
DX: M19.042 Primary osteoarthritis, left hand (principal); I10 Essential (primary) hypertension; E78.5 Hyperlipidemia, unspecified; Z79.82 Long term (current) use of aspirin; Z79.899 Other long term (current) drug therapy
CPT/HCPCS: 36415; 93005; 80053; 82550; 84484; 85025; 85610; 85730; 73130; 70450; 99284; 96374; J1100

== ENCOUNTER → 2023-01-25 | Outpatient (CLI) | payer MEDICARE ==
--- NOTE | 2023-01-25 10:05 | US ---
EXAMINATION TYPE: US thyroid st tissue head/neck EXAMINATION TYPE: US thyroid st tissue head/neck DATE OF EXAM: 01/25/2023 COMPARISON: NONE CLINICAL INDICATION: Male, 78 years old with history of R59.0 LOCALIZED ENLARGED LYMPH NODES; Palpabl e lump midline posterior neck x 6 months TECHNIQUE: Midline posterior neck near base of skull FINDINGS: In area of pt's palpable there is an isoechoic, non-vascualr lesion= 0.9 x 0.4 x 1.2 cm IMPRESSION: Probable subcutaneous lymph node at the site of clinical concern. Correlate clinically and consider f ollow-up study and/or CT.
== END | disposition home or self-care (01) ==
LOC: RADUSWWP 09:39
PROVIDERS: ATTEND Family Medicine
DX: R59.0 Localized enlarged lymph nodes (principal)
CPT/HCPCS: 76536

== ENCOUNTER → 2023-01-28 | Outpatient (CLI) | payer MEDICARE ==
[2023-01-28 09:54] LABS: African American GFR (CKD) 84 (>60 ml/min/1.73 sqM); Blood Urea Nitrogen 23 mg/dL (9-20); Non-African American GFR(CKD) 72 (>60 ml/min/1.73 sqM)
--- NOTE | 2023-01-30 07:16 | CT ---
EXAMINATION TYPE: CT soft tissue neck w con DATE OF EXAM: 01/28/2023 COMPARISON: Ultrasound 01/25/2023 which commented on a 1.2 cm nodule at the midline posterior neck lum p. HISTORY: 78-year-old male Lymphadenopathy. TECHNIQUE: Contiguous axial scanning of the soft tissues of the neck performed with IV Contrast, jan ent injected with 100ml mL of Isovue 300. Coronal/sagittal reconstructions performed. CT DLP: 416.7 mGycm Automated exposure control for dose reduction was used. FINDINGS: Atherosclerotic calcifications within the bilateral carotid siphons. Mild mucosal thickening floor of the right maxillary sinus. Mastoid air cells well pneumatized. Orbits and globes appear intact. The nasopharynx appears clear. Some slight medial deviation to the superior cornu of the left thyroid cartilage with secondary mild impression onto the left posterior wall of the oropharynx/hypopharynx, possibly related to old injury or congenital finding. There is slight nodularity at the level of the false cords which can be correlated with direct inspec tion. Possible normal variation, axial image 52. Some minimal scattered hypodense nodularity in the thyroid gland measuring up to 9 mm. The bilateral submandibular glands are satisfactory. Atrophic bilateral parotid glands. Moderate atherosclerotic changes at the bilateral carotid bifurcations possibly moderate stenosis pro ximal right ICA. No obvious cervical lymphadenopathy is seen. There is a nonspecific 8 mm area of soft tissue nodularity just overlying the superficial fascia oppo site the C5 spinous process. This does not have a particular masslike configuration. A small lymph no de is possible. Chest reported separately. Bones: Mild to moderate fibrotic change throughout the cervical spine. IMPRESSION: 1. NONSPECIFIC 8 MM SOFT TISSUE NODULARITY ALONG THE POSTERIOR MIDLINE MID TO LOWER NECK JUST OVERLYI NG THE SUPERFICIAL MUSCULAR FASCIA. THIS MAY CORRESPOND TO THE AREA OF PALPABLE ABNORMALITY SEEN BY U LTRASOUND. IT DOES NOT HAVE A PARTICULAR MASSLIKE CONFIGURATION. A SMALL LYMPH NODE IS POSSIBLE. CLIN ICAL OR ULTRASOUND SURVEILLANCE FOLLOW-UP CAN BE PERFORMED. 2. OTHERWISE, NO SUSPICIOUS CERVICAL LYMPHADENOPATHY SEEN. 3. HOWEVER, THERE IS SOME NODULARITY OF THE LEVEL OF THE FALSE CORDS WHICH CAN BE CORRELATED WITH DIR ECT INSPECTION. POSSIBLE NORMAL VARIATION VERSUS MUCOSAL LESION.
--- NOTE | 2023-01-30 07:27 | CT ---
EXAMINATION TYPE: CT ChestAbdPelvis w con DATE OF EXAM: 01/28/2023 COMPARISON: 06/15/2022 HISTORY: 78-year-old male R59.0, Lymphadenopathy. TECHNIQUE: Contiguous axial scanning of the chest, abdomen, and pelvis performed with IV Contrast, pa tient injected with 100ml mL of Isovue 300. Delayed images through the kidneys were obtained. Coronal /sagittal reconstructions performed. CT DLP: 1076 mGycm Automated exposure control for dose reduction was used. FINDINGS: Chest: Heart normal size without pericardial effusion. Scattered three-vessel coronary artery calcifications are present, extensive in the LAD. Findings compatible with coronary artery disease. 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 Mildly ectatic upper descending thoracic aorta 3.1 cm. Mild ath erosclerotic arch calcifications. Conventional arch vessel branching anatomy. Neck reported separately. Mildly enlarged caliber to the main right and left pulmonary arteries up to 2.8 cm suggesting underly ing pulmonary hypertension. No thoracic lymphadenopathy by CT size criteria. No consolidation or pleural effusion. ABDOMEN: There is a tiny hiatal hernia. Tiny 5 mm hepatic hypodensity anterior left liver lobe unchanged, likely tiny cysts. Otherwise, no fo leslye liver lesion seen. Portal venous system is patent. No biliary ductal dilatation. No abnormal gallbladder distention. Suspect old cortical defect anterior mid pole right kidney possibly sequela of prior vascular or infe ctious insult. There is a nonobstructive 4 mm stone anterior lower pole right kidney. Parapelvic cys ts in the left kidney measure up to 1.7 cm. Small medial upper pole cortical cyst is also present on the left measuring 8 mm. The spleen and pancreas show no gross abnormality. Mild to moderate atherosclerotic calcifications abdominal aorta and common iliac arteries. No dilated small bowel, free fluid, or free air. No mesenteric or retroperitoneal lymphadenopathy see n. There is mild stool burden. Oral contrast has progressed into the proximal sigmoid colon. Mildly redu ndant sigmoid colon. No pericolonic inflammatory change seen. There is some eccentric soft tissue thi ckening along the wall of the rectum, axial image 113 and 117 and coronal image 74. Correlate with di rect inspection if routine screening colonoscopy has not been performed. Pelvis: Prostate gland measures 4.3 cm wide with central calcifications. Either some submucosal fat depositio n anterior wall of the bladder versus some nondependent intraluminal bladder air. Otherwise, no abnor mal fluid collection the pelvis or pelvic lymphadenopathy. Bones: Degenerative change of the SI joints. There is left L5 hemisacralization. Moderate spondylotic change throughout the mid to lower thoracic and lumbar spines. No osseous destructive process seen. IMPRESSION: 1. Some eccentric soft tissue thickening along the wall of the rectum could represent focal peristals is. Recommend direct visualization to exclude a mucosal lesion if routine screening colonoscopy is no t being performed. 2. Either submucosal fat deposition along the anterior wall of the bladder versus some nondependent i ntraluminal bladder air. Recommend clinical correlation to exclude cystitis or correlate for any rece nt instrumentation. 3. No suspicious lymphadenopathy identified. 4. INCIDENTAL: Mild aneurysm ascending aorta at 4.2 cm. Possible underlying pulmonary arterial hypert ension. Coronary artery disease. 4 mm nonobstructive right renal calculus, prominent parapelvic cysts left kidney, and mild prostatomegaly at 4.3 cm wide.
== END | disposition home or self-care (01) ==
LOC: RADCTMAIN 09:13
PROVIDERS: ATTEND Internal Medicine Hematology & Oncology
DX: I25.10 Atherosclerotic heart disease of native coronary artery without angina pectoris (principal); N20.0 Calculus of kidney; N28.1 Cyst of kidney, acquired; N40.0 Benign prostatic hyperplasia without lower urinary tract symptoms; K62.89 Other specified diseases of anus and rectum; R59.0 Localized enlarged lymph nodes
CPT/HCPCS: 82565; 84520; 70491; 71260; 74177; 36415; Q9967

== ENCOUNTER 2023-04-16 13:32 | Inpatient (IN) | payer MEDICARE ==
[2023-04-16] MEDS ORDERED: HYDROcodone/APAP 5-325MG 1 EACH TAB PO PRN (20:11)
[2023-04-16] MEDS ORDERED: ATORVASTATIN 10 MG TAB PO SCH (21:00)
[2023-04-16] MEDS: lisinopriL 20 MG TAB PO SCH (21:36)
[2023-04-16] MEDS: amLODIPine 10 MG TAB PO SCH (21:36)
[2023-04-16] MEDS: ASPIRIN 81 MG PO SCH (21:36)
[2023-04-17] MEDS: ASPIRIN 81 MG PO SCH (08:54)
[2023-04-17] MEDS ORDERED: ONDANSETRON 4 MG/2 ML VIAL IVP PRN (09:08)
[2023-04-17] MEDS ORDERED: ACETAMINOPHEN TAB 325 MG TAB PO PRN (09:08)
[2023-04-17] MEDS: PANTOPRAZOLE 40 MG TABLET PO SCH (12:42)
--- NOTE | 2023-04-17 14:09 | P.GSCN ---
History of Present Illness Consult date: 04/17/23 Reason for Consult: Carotid stenosis Requesting physician: Jessica Dawkins History of present illness: This is a pleasant 78-year-old male who was sent over from my [facility] for concerns for severe right ICA stenosis. Apparently patient went to [facility] by EMS yesterday after he had fallen twice and his states that he had on some slurred speech. 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 Patient states he had been feeling generalized weakness that both of his legs felt weak there was not more weakness on one side or the other. He denied any upper extremity weakness. States he has had a cough and not feeling well over the last 4-5 days. Patient was diagnosed with Covid 19 infection. Patient's states that his speech has been slurred since his last stroke which was a bout of 11 years ago however she states that his speech was worse at 2 separate occasions lasting only a couple minutes yesterday. He states he is not followed with anybody for his carotid arteries and has no order administrator. States last stroke was related to hypertension. He currently denies any deficits at this time other than his residual slurred speech which is at baseline. He underwent a CT angiogram of the head and neck at [facility] with the report stating greater than 90% stenosis of the proximal right internal carotid artery and 50% stenosis of the proximal left internal carotid artery secondary to calcified plaque. Patient also underwent CT brain that shows no acute findings there was a remote left parietal occipital watershed infarct. Remote left frontal lobe injury. Vascular surgery was consulted for severe right ICA stenosis. Patient again currently denies any focal deficits, he was up and walking in his room. He is alert and oriented 3. Denies any shortness of breath or chest pain. Does have a cough. He had a very low-grade fever of 99.5F. He is currently taking aspirin 81 mg daily, atorvastatin 10 mg at bedtime amongst his other regular home medications. Review of Systems A 14 point review systems was completed all pertinent positives and negatives as stated in the HPI. Past Medical History Past Medical History: CVA/TIA, Hyperlipidemia, Hypertension Additional Past Medical History / Comment(s): Stroke History of Any Multi-Drug Resistant Organisms: None Reported Past Surgical History: Orthopedic Surgery Additional Past Surgical History / Comment(s): Lumbar surgery, cysto/lithotripsy, pyloric sphincter surgery as baby, R rotator cuff surgery, colonoscopy, bilateral cataract removal., kidney surgery Past Anesthesia/Blood Transfusion Reactions: No Reported Reaction Past Psychological History: No Psychological Hx Reported Additional Psychological History / Comment(s): Pt resides with his spouse. He uses no assistive device. He drives a limited amount. Smoking Status: Never smoker Past Alcohol Use History: None Reported Past Drug Use History: None Reported - Past Family History Mother Family Medical History: CVA/TIA Additional Family Medical History / Comment(s): Mother had a CVA. Father Family Medical History: Unable to Obtain Additional Family Medical History / Comment(s): Pt cannot recall father's medical hx Medications and Allergies Home Medications Medication Instructions Recorded Confirmed Type Atorvastatin Calcium [Lipitor] 10 mg PO HS 08/22/20 04/16/23 History amLODIPine BESYLATE/BENAZEPRIL 1 cap PO HS 08/22/20 04/16/23 History [Lotrel 10-20 MG] Aspirin 81 mg PO DAILY #30 chewable 08/23/20 04/16/23 Rx Mirabegron [Myrbetriq] 25 mg PO DAILY 04/16/23 04/16/23 History Omeprazole 20 mg PO HS 04/16/23 04/16/23 History Allergies Allergy/AdvReac Type Severity Reaction Status Date / Time No Known Allergies Allergy Verified 04/16/23 21:38 Surgical - Exam Vital Signs Temp Pulse Resp BP Pulse Ox 99.5 F 89 18 170/71 94 L 04/16/23 19:10 04/16/23 19:10 04/16/23 19:10 04/16/23 19:10 04/16/23 19:10 General appearance: The patient is alert, oriented, appears in no acute distress. HET: Head is normocephalic and atraumatic. Pupils are equal and reactive. Neck: Supple. Heart: Regular. Lungs: Equal expansion, normal respiratory effort. Abdomen: Soft, nontender, nondistended. Extremities: Normal skin color and turgor. Neurological: Patient does have some slurred speech, patient only states that is his baseline from previous stroke. Patient has facial symmetry, tongue protrudes midline. Strength and sensation are grossly intact. Results - Imaging Comments: CT angiogram head and neck done 04/15/2023 at [facility] report states no evidence of dissection of the cervical internal carotid arteries are vertebral arteries. Approximately 90% stenosis of the proximal right internal carotid artery and 50% stenosis of the proximal left internal carotid artery secondary to calcified plaque. Moderate stenosis of the cavernous portion of both internal carotid arteries. No evidence of high-grade stenosis or intracranial aneurysm. CT brain without contrast findings reported no acute intracranial process. Nonspecific white matter changes, likely secondary to chronic small vessel ischemic disease. Remote left frontal and left parietal occipital watershed infarcts with encephalomalacia. Assessment and Plan Assessment: 1. Right internal carotid artery stenosis approximately 90%, left internal carotid artery stenosis approximately 50% per CT angiogram head and neck 2. History of previous CVA with residual right-sided weakness and slurred speech 3. Remote left frontal and left parietal occipital watershed infarcts 4. Weakness with fall 5. Covid 19 infection 6. Hypertension 7. Hyperlipidemia 8. History of renal cancer Plan: 1. Please get copy of CT angiogram head and neck downloaded 2. Please get disc made of CT angiogram head and neck 3. Await further recommendations from neurology 4. Further recommendations forthcoming per vascular surgeon. Likely patient can follow up outpatient for surgical intervention. 5. Cotinue ASA 81 mg daily, recommend plavix 75 mg daily if cleared by neurology and atorvastatin increased Thank you for this consultation, we will continue to follow. The impression and plan of care has been dictated as directed. I performed a history and examination of this patient, discussed the same with the dictator. I agree with the dictator's note ,documented as a scribe. Any additional findings or plans will be noted.
--- NOTE | 2023-04-17 14:44 | P.CNNES ---
History of Present Illness Consult date: 04/17/23 Requesting physician: Jessica Dawkins Reason for Consult: right leg weakness History of Present Illness: This is a 78-year-old gentleman with history of stroke with residual right upper extremity weakness mostly in the hands with expressive aphasia, carotid stenosis right more than left, hypertension, hypercholesterolemia who presents because of worsening of his speech and leg weakness. Some of the history is obtained from the patient's was at bedside. According to the and she felt that the patient's speech was worse this past Saturday as well as having bilateral leg weakness. He does have residual expressive aphasia but his speech got worse this past Saturday and is seems that he's been falling. Seems that the patient has recent positive COVID-19. Patient was notified by his vascular surgeon as an outpatient that he has significant right ICA stenosis about 90% while the left is 50%. He had CTA head and neck 04/15/2023 at [facility] and it showed no dissection and showed 90% of right ICA, and left ICA 50%. CT head no acute or subacute remote left fronto/parietal/occipital The patient is on aspirin. Denies any and he for blood or flutter. It seems the patient was transferred from [facility]. Review of Systems The positive and negative as per HPI. Past Medical History Past Medical History: CVA/TIA, Hyperlipidemia, Hypertension Additional Past Medical History / Comment(s): Stroke History of Any Multi-Drug Resistant Organisms: None Reported Past Surgical History: Orthopedic Surgery Additional Past Surgical History / Comment(s): Lumbar surgery, cysto/lithotripsy, pyloric sphincter surgery as baby, R rotator cuff surgery, colonoscopy, bilateral cataract removal., kidney surgery Past Anesthesia/Blood Transfusion Reactions: No Reported Reaction Past Psychological History: No Psychological Hx Reported Additional Psychological History / Comment(s): Pt resides with his spouse. He uses no assistive device. He drives a limited amount. Smoking Status: Never smoker Past Alcohol Use History: None Reported Past Drug Use History: None Reported - Past Family History Mother Family Medical History: CVA/TIA Additional Family Medical History / Comment(s): Mother had a CVA. Father Family Medical History: Unable to Obtain Additional Family Medical History / Comment(s): Pt cannot recall father's medical hx Medications and Allergies Home Medications Medication Instructions Recorded Confirmed Type Atorvastatin Calcium [Lipitor] 10 mg PO HS 08/22/20 04/16/23 History amLODIPine BESYLATE/BENAZEPRIL 1 cap PO HS 08/22/20 04/16/23 History [Lotrel 10-20 MG] Aspirin 81 mg PO DAILY #30 chewable 08/23/20 04/16/23 Rx Mirabegron [Myrbetriq] 25 mg PO DAILY 04/16/23 04/16/23 History Omeprazole 20 mg PO HS 04/16/23 04/16/23 History Allergies Allergy/AdvReac Type Severity Reaction Status Date / Time No Known Allergies Allergy Verified 04/16/23 21:38 Physical Examination - Vital Signs Vital Signs: Vital Signs Temp Pulse Resp BP Pulse Ox 04/17/23 08:00 97.6 F 76 16 127/67 96 04/17/23 04:00 98.4 F 65 16 125/62 96 04/16/23 23:53 99 F 72 18 130/65 93 L 04/16/23 19:33 99.5 F 89 18 170/71 94 L 04/16/23 19:10 99.5 F 89 18 170/71 94 L Intake and Output 04/16/23 04/17/23 04/17/23 22:59 06:59 14:59 Intake Total 110 Balance 110 Intake: Oral 110 Other: Voiding Method Toilet Toilet Toilet # Voids 1 3 Weight 75.189 kg GENERAL: The patient is lying in bed and is not in acute distress. NEUROLOGICAL: Higher mental function: The patient is awake, alert, oriented to self, place and time. Patient is following commands. Has expressive aphasia (old). No neglect. Cranial nerves: The pupils are round, equal and reactive to light. Visual sharp are full to confrontation throughout. Extraocular movement is intact no nystagmus is noted. Facial sensation is normal to touch throughout. The facial strength is mild right lower facial weakness which is old. Tongue is midline and moved [id number] without any difficulty. No dysarthria is noted. Shoulder shrug is normal bilaterally. Motor: The strength is has residual dystrexity weakness of right hand that is old. Otherwise 5 over 5 throughout. Normal bulk. Slight increase tone on right hand. Cerebellum: Normal finger to nose bilaterally. Sensation: Sensation is normal to touch throughout. Reflexes (right/left):2+ throughout. Plantars are mute bilaterally. Assessment and Plan Assessment: This is a 78-year-old gentleman with history of left hemispheric stroke with residual expressive aphasia, mild right facial droop and weakness of fine motor of right hand who on the this Saturday has been having worsening of the speech and bilateral leg weakness according to his and some falls. He has acute COVID-19 infection. At the outside hospital he had CT angiography of the head and neck which showed the 90% of the right ICA while the left ICA was 50%. CT of the head is negative for any acute or subacute stroke at outside facility. Episode of worsening of his expressive aphasia and bilateral leg weakness unsure if due to TIA versus exacerbation from acute COVID-19. Significant right ICA stenosis of about 90% at the outside hospital on the left ICA was 50%. Acute COVID-19 infection History of stroke about 11 years ago over the left hemisphere with the residual expressive aphasia, mild right facial droop and the fine motor weakness of the right hand. Hypertension Hypercholesteremia Plan: I ordered MRI of the brain, echo, carotid duplex, lipid panel, TSH, hemoglobin A1c. Patient is on home medication of aspirin daily in addition I started the patient on Plavix 75 mg daily. I increased Lipitor from 40 mg to 80 mg daily at bedtime for secondary stroke prophylaxis as well as a higher dose help stabilize the plaque of the carotid. Vascular surgery team is on board Neurochecks Cardiac monitoring I consulted PT OT and IRRIGATION DISTRICT MANAGER We'll defer the rest of the medical management to primary team For DVT prophylaxis I started the patient on subcu heparin 5000 at every 12 hour s. Plan discussed with the patient, his was at bedside and the MP from the vascular surgery team Thank you for the consultation Time with Patient: Greater than 30
[2023-04-17 16:25] LABS: African American GFR (CKD) 71 (>60 ml/min/1.73 sqM); Anion Gap 8 mmol/L; Blood Urea Nitrogen 24 mg/dL (9-20); Calcium 8.6 mg/dL (8.4-10.2); Carbon Dioxide 27 mmol/L (22-30); Chloride 102 mmol/L (98-107); Glucose 104 mg/dL (74-99); Non-African American GFR(CKD) 61 (>60 ml/min/1.73 sqM); Potassium 3.8 mmol/L (3.5-5.1); Sodium 137 mmol/L (137-145)
[2023-04-17 16:31] LABS: HCT 37.8 % (39.0-53.0); HGB 13.5 gm/dL (13.0-17.5); MCH 33.2 pg (25.0-35.0); MCHC 35.6 g/dL (31.0-37.0); MCV 93.3 fL (80.0-100.0); Mean Platelet Volume 7.6; Platelet Count 111 k/uL (150-450); RBC 4.05 m/uL (4.30-5.90); RDW 12.5 % (11.5-15.5)
[2023-04-17] MEDS: CLOPIDOGREL 75 MG TAB PO SCH (17:18)
[2023-04-17 18:24] LABS: T4, Free (Free Thyroxine) 1.15 ng/dL (0.78-2.19)
[2023-04-17 18:25] LABS: Monocytes # (M) 0.44 k/uL (0-1.0); Neutrophils # (M) 2.56 k/uL (1.3-7.7); Neutrophils % (M) 64 %; Nucleated Red Blood Cells 0 /100 WBC (0-0); Total Cells Counted 100
[2023-04-17] MEDS ORDERED: ATORVASTATIN 40 MG TAB PO SCH (21:00)
[2023-04-17] MEDS ORDERED: ATORVASTATIN 80 MG TAB PO SCH (21:00)
[2023-04-17] MEDS: lisinopriL 20 MG TAB PO SCH (21:43)
[2023-04-17] MEDS: amLODIPine 10 MG TAB PO SCH (21:43)
[2023-04-17] MEDS: HEPARIN SODIUM,PORCINE 5,000 UNIT/ML 1 ML VIAL SQ SCH (21:43)
--- NOTE | 2023-04-17 23:43 | P.HPIM ---
History of Present Illness H&P Date: 04/17/23 Chief Complaint: Slurred speech Patient is a 78-year-old male with a past medical history of hypertension, hyperlipidemia, history of CVA with right-sided weakness about 11 years ago presents to ER with complaints of generalized weakness and slurred speech. Initially presented to [facility] at around 2 PM on 04/15/2023 with complaints of generalized weakness and slurred speech. According to the patient he went to his garage to do some work evening before admission and he was struggling to get around and had a fall while he was working. Patient felt very weak and went to bed and woke up around 11 AM and he was noted to have slurred speech. EMS was called and patient was brought to ER. Otherwise patient denies any headache. Does have dizziness. No nausea or vomiting. No abdominal pain or diarrhea. Denies any speech issues due to his prior CVA. Patient states that he is feeling sick and took a dose of NyQuil which made him drowsy. He is vaccinated against COVID. CT head showed no acute intracranial process. Nonspecific white matter changes ., Likely secondary to chronic small vessel ischemic disease. Remote left frontal and right parietal occipital watershed infarcts with encephalomalacia. Chest x-ray showed no acute cardiopulmonary process. CT angiogram showed no evidence of dissection of this cervical internal carotid arteries or vertebral arteries. Approximately 90% stenosis of the proximal right ICA and 50% stenosis of the p roximal left ICA secondary to calcified plaque. Moderate stenosis of the cavernous portion of both internal carotid arteries. No evidence of high-grade stenosis or intracranial aneurysm. Laboratory data at [facility] showed sodium 137 potassium 3.9, chloride 103 bicarb is 26.4 BUN 12 and creatinine 1.15, AST 15 ALT 21 alk phos 104, calcium 8.4 and LDH 204 and lactic acid 0.6. Lipid panel showed cholesterol 93 HDL 42 triglycerides 57 and LDL 40 WBC 7.8 hemoglobin 14.1 platelets 130 COVID-19 PCR positive. Patient was transferred to [facility] to be evaluated by sd scular surgery. Review of Systems Constitutional: Patient denies any fever or chills . Generalized weakness. Abdomen: Patient denied any nausea or vomiting or abd. pain Cardiovascular: Patient denies any chest pain or short of breath no palpitations. Respiratory: patient denied any cough . no sputum production. No shortness of breath Neurologic: Patient denied any numbness or tingling or headache. Noted to have slurred speech and weakness. Musculoskeletal: Patient denies any complaints of joint swelling or deformity. Skin: Negative Psychiatric: Negative Endocrine: No heat or cold intolerance. No recent weight gain. Genitourinary: No dysuria or hematuria. All other 14 point ROS negative except the above Past Medical History Past Medical History: CVA/TIA, Hyperlipidemia, Hypertension Additional Past Medical History / Comment(s): Stroke History of Any Multi-Drug Resistant Organisms: None Reported Past Surgical History: Orthopedic Surgery Additional Past Surgical History / Comment(s): Lumbar surgery, cysto/lithotrips y, pyloric sphincter surgery as baby, R rotator cuff surgery, colonoscopy, bilateral cataract removal., kidney surgery Past Anesthesia/Blood Transfusion Reactions: No Reported Reaction Past Psychological History: No Psychological Hx Reported Additional Psychological History / Comment(s): Pt resides with his spouse. He uses no assistive device. He drives a limited amount. Smoking Status: Never smoker Past Alcohol Use History: None Reported Past Drug Use History: None Reported - Past Family History Mother Family Medical History: CVA/TIA Additional Family Medical History / Comment(s): Mother had a CVA. Father Family Medical History: Unable to Obtain Additional Family Medical History / Comment(s): Pt cannot recall father's medical hx Medications and Allergies Home Medications Medication Instructions Recorded Confirmed Type Atorvastatin Calcium [Lipitor] 10 mg PO HS 08/22/20 04/16/23 History amLODIPine BESYLATE/BENAZEPRIL 1 cap PO HS 08/22/20 04/16/23 History [Lotrel 10-20 MG] Aspirin 81 mg PO DAILY #30 chewable 08/23/20 04/16/23 Rx Mirabegron [Myrbetriq] 25 mg PO DAILY 04/16/23 04/16/23 History Omeprazole 20 mg PO HS 04/16/23 04/16/23 History Allergies Allergy/AdvReac Type Severity Reaction Status Date / Time No Known Allergies Allergy Verified 04/16/23 21:38 Physical Exam Vitals: Vital Signs Temp Pulse Resp BP Pulse Ox 04/17/23 12:00 64 16 137/68 96 04/17/23 08:00 97.6 F 76 16 127/67 96 04/17/23 04:00 98.4 F 65 16 125/62 96 04/16/23 23:53 99 F 72 18 130/65 93 L 04/16/23 19:33 99.5 F 89 18 170/71 94 L 04/16/23 19:10 99.5 F 89 18 170/71 94 L Intake and Output 04/17/23 04/17/23 04/17/23 06:59 14:59 22:59 Intake Total 110 Balance 110 Intake: Oral 110 Other: Voiding Method Toilet Toilet # Voids 3 PHYSICAL EXAMINATION: Patient is lying in the bed comfortably, no acute distress, awake alert and oriented.. HEENT: Normocephalic. Neck is supple. Pupils reactive. Nostrils clear. Oral cavity is moist. Neck reveals no JVD, carotid bruits, or thyromegaly. CHEST EXAMINATION: Trachea is central. Symmetrical expansion. Lung sharp clear to auscultation and percussion. CARDIAC: Normal S1, S2 with no gallops. No murmurs ABDOMEN: Soft. Bowel sounds present. Nontender. No organomegaly. No abdominal bruits. Extremities: reveal no edema. No clubbing or cyanosis Neurologically awake, alert, oriented x3, right-sided weakness with muscle strength 4 out of 5. Minimal right facial droop. Skin: No rash or skin lesions. Psychiatric: Coperative. Nonsuicidal, Musculoskeletal: No joint swelling or deformity. Normal range of motion. Results CBC & Chem 7: 04/17/23 14:30 04/17/23 14:30 Thrombosis Risk Factor Assmnt - DVT/VTE Prophylaxis DVT/VTE Prophylaxis: Pharmacologic Prophylaxis ordered - Choose All That Apply Any of the Below Risk Factors Present?: No Other Risk Factors: Yes Each Risk Factor Represents 3 Points: Age 75 years or older Other congenital or acquired thrombophilia - If yes, enter type in comment: No Thrombosis Risk Factor Assessment Total Risk Factor Score: 3 Thrombosis Risk Factor Assessment Level: Moderate Risk Assessment and Plan Assessment: Slurred speech and generalized weakness. Concern for versus symptoms due to COVID-19 infection. Right ICA 90% stenosis and left ICA 50% stenosis secondary to calcified plaque Acute COVID-19 infection History of CVA with right-sided weakness and mild right Facial droop Hypertension Hyperlipidemia History of lumbar surgery History of cystoscopy and lithotripsy GI and DVT prophylaxis PPI and heparin subcu Plan: Patient will be continued on aspirin and Plavix 75 mg p.o. daily was added. Continue with statins. Follow-up TSH, free T4, B12 and folate levels. A1c was 5.4 Vascular surgery was consulted due to severe right ICA proximal stenosis. Neurology is on board. 2D echocardiogram, MRI of the brain without contrast was ordered for further evaluation of possible CVA. Continue home medications. Patient will be continued on contact and droplet precautions. Follow-up closely. Discussed with the patient and his at bedside in detail. Time with Patient: Greater than 30
[2023-04-18 01:54] LABS: LDL Cholesterol,Calculated 31.4 mg/dL (0.0-131.0)
[2023-04-18] MEDS: SODIUM CHLORIDE 0.9% 1,000 ML IV SCH ×2 (06:38→14:25)
[2023-04-18] MEDS: PANTOPRAZOLE 40 MG TABLET PO SCH (06:47)
[2023-04-18] MEDS: HEPARIN SODIUM,PORCINE 5,000 UNIT/ML 1 ML VIAL SQ SCH (09:24)
[2023-04-18] MEDS: ASPIRIN 81 MG PO SCH (09:24)
[2023-04-18] MEDS: CLOPIDOGREL 75 MG TAB PO SCH (09:24)
[2023-04-18 09:46] VITALS: RESP 16; TEMP 97.4
[2023-04-18 10:01] LABS: African American GFR (CKD) 86 (>60 ml/min/1.73 sqM); Anion Gap 9 mmol/L; Blood Urea Nitrogen 23 mg/dL (9-20); Calcium 8.8 mg/dL (8.4-10.2); Carbon Dioxide 24 mmol/L (22-30); Chloride 104 mmol/L (98-107); Glucose 127 mg/dL (74-99); Non-African American GFR(CKD) 75 (>60 ml/min/1.73 sqM); Potassium 3.8 mmol/L (3.5-5.1); Sodium 137 mmol/L (137-145)
--- NOTE | 2023-04-18 10:37 | P.PN ---
Subjective Progress Note Date: 04/18/23 Principal diagnosis: Carotid stenosis Patient is seen and examined today for follow-up for severe right ICA stenosis. He denies any new focal deficits. Continues to have his baseline slurred speech. He has been up and ambulating in his room without any difficulty. Carotid duplex was done at [facility], report reviewed by Dr. Nolasco with discordant findings. However CTA head and neck imaging reviewed by Dr. Nolasco as well and agrees with high-grade stenosis of the right ICA. Patient is scheduled for MRI today at 145. He has been started on Plavix, a ator vastatin increased to 80 mg at bedtime and continue aspirin 81 mg. Objective - Vital Signs Vital signs: Vital Signs Temp 97.4 F L 04/18/23 09:25 Pulse 63 04/18/23 09:25 Resp 16 04/18/23 09:25 BP 117/68 04/18/23 09:25 Pulse Ox 97 04/18/23 09:25 FiO2 Intake & Output 04/17/23 04/18/23 04/18/23 18:59 06:59 18:59 Intake Total 460 Output Total 650 Balance 460 -650 Intake: Oral 460 Output: Urine 650 Other: Voiding Method Toilet Toilet # Voids 3 - Exam General appearance: The patient is alert, oriented, appears in no acute distress. HET: Head is normocephalic and atraumatic. Pupils are equal and reactive. Neck: Supple. Heart: Regular. Lungs: Equal expansion, normal respiratory effort. Abdomen: Soft, nontender, nondistended. Extremities: Normal skin color and turgor. Neurological: Patient does have speech deficit, somewhat slurred but states this is his baseline from prior CVA. Strength and sensation are grossly intact. - Labs CBC & Chem 7: 04/17/23 14:30 04/18/23 08:58 Labs: Abnormal Lab Results - Last 24 Hours (Table) 04/17/23 04/17/23 04/17/23 Range/Units 14:30 14:30 14:41 RBC 4.05 L (4.30-5.90) m/uL Hct 37.8 L (39.0-53.0) % Plt Count 111 L (150-450) k/uL BUN 24 H (9-20) mg/dL Glucose 104 H (74-99) mg/dL HDL Cholesterol 34.20 L (40.00-60.00) mg/dL TSH 0.044 L (0.465-4.680) mIU/L Assessment and Plan Assessment: 1. Right internal carotid artery stenosis approximately 90%, left internal carotid artery stenosis approximately 50% per CT angiogram head and neck 2. History of previous CVA with residual right-sided weakness and slurred speech 3. Remote left frontal and left parietal occipital watershed infarcts 4. Weakness with fall 5. Covid 19 infection 6. Hypertension 7. Hyperlipidemia 8. History of renal cancer Plan: 1. Please get copy of CT angiogram head and neck downloaded 2. Patient scheduled for MRI this afternoon 3. Continue aspirin 81 mg daily, Plavix 75 mg daily and atraumatic And 80 mg at bedtime 4. No plans at this time for vascular surgical intervention for right ICA. Will plan for follow-up in one week with outpatient scheduling of likely right trans-carotid artery revascularization. 5. Await further recommendations from neurology 6. Patient is cleared from vascular surgery for discharge Thank you for this consultation. The impression and plan of care has been dictated as directed. I performed a history and examination of this patient, discussed the same with the dictator. I agree with the dictator's note ,documented as a scribe. Any additional findings or plans will be noted.
--- NOTE | 2023-04-18 13:26 | P.PN ---
Subjective Progress Note Date: 04/18/23 I am following-up with patient and he feels about the same. He is scheduled for MRI later today. It seems he had carotid duplex as outpatient at [facility]. Objective - Vital Signs Vital signs: Vital Signs Temp 97.4 F L 04/18/23 09:25 Pulse 63 04/18/23 12:00 Resp 16 04/18/23 12:00 BP 123/68 04/18/23 12:00 Pulse Ox 97 04/18/23 12:00 FiO2 Intake & Output 04/17/23 04/18/23 04/18/23 18:59 06:59 18:59 Intake Total 460 118 Output Total 650 Balance 460 -650 118 Intake: Oral 460 118 Output: Urine 650 Other: Voiding Method Toilet Toilet # Voids 3 - Exam GENERAL: The patient is lying in bed and is not in acute distress. NEUROLOGICAL: Higher mental function: The patient is awake, alert, oriented to self, place and time. Patient is following commands. Has expressive aphasia (old). No neglect. Cranial nerves: The pupils are round, equal and reactive to light. Visual sharp are full to confrontation throughout. Extraocular movement is intact no nystagmus is noted. Facial sensation is normal to touch throughout. The facial strength is mild right lower facial weakness which is old. Tongue is midline and moved [id number] without any difficulty. No dysarthria is noted. Shoulder shrug is normal bilaterally. Motor: The strength is has residual dystrexity weakness of right hand that is old. Otherwise 5 over 5 throughout. Normal bulk. Slight increase tone on right hand. Cerebellum: Normal finger to nose bilaterally. Sensation: Sensation is normal to touch throughout. Reflexes (right/left):2+ throughout. Plantars are mute bilaterally. Some of the work-up during this hospital visit consisted of: Lipid panel: TG 117, cholestrol 89, LDL 31 and HDL is 34 TSH: 0.044 and free T4: 1.15 HbA1c: 5.4 - Labs CBC & Chem 7: 04/17/23 14:30 04/18/23 08:58 Labs: Abnormal Lab Results - Last 24 Hours (Table) 04/17/23 04/17/23 04/17/23 Range/Units 14:30 14:30 14:41 RBC 4.05 L (4.30-5.90) m/uL Hct 37.8 L (39.0-53.0) % Plt Count 111 L (150-450) k/uL BUN 24 H (9-20) mg/dL Glucose 104 H (74-99) mg/dL HDL Cholesterol 34.20 L (40.00-60.00) mg/dL TSH 0.044 L (0.465-4.680) mIU/L 04/18/23 Range/Units 08:58 RBC (4.30-5.90) m/uL Hct (39.0-53.0) % Plt Count (150-450) k/uL BUN 23 H (9-20) mg/dL Glucose 127 H (74-99) mg/dL HDL Cholesterol (40.00-60.00) mg/dL TSH (0.465-4.680) mIU/L Assessment and Plan Assessment: This is a 78-year-old gentleman with history of left hemispheric stroke with residual expressive aphasia, mild right facial droop and weakness of fine motor of right hand who on the this Saturday has been having worsening of the speech and bilateral leg weakness according to his and some falls. He has acute COVID-19 infection. At the outside hospital he had CT angiography of the head and neck which showed the 90% of the right ICA while the left ICA was 50%. CT of the head is negative for any acute or subacute stroke at outside facility. Episode of worsening of his expressive aphasia and bilateral leg weakness unsure if due to TIA versus exacerbation from acute COVID-19. Significant right ICA stenosis of about 90% at the outside hospital on the left ICA was 50%. Acute COVID-19 infection History of stroke about 11 years ago over the left hemisphere with the residual expressive aphasia, mild right facial droop and the fine motor weakness of the right hand. Hypertension Hypercholesteremia Plan: Pending MRI of the brain and 2D echo. I was notified he had carotid duplex recently at [facility] so ordered was d iscontinued for this admission. Patient is on home medication of aspirin daily in addition I started the patient on Plavix 75 mg daily. I increased Lipitor from 40 mg to 80 mg daily at bedtime for secondary stroke prophylaxis as well as a higher dose help stabilize the plaque of the carotid. After carotid surgery, recommend to go down on Lipitor from 80 to 40mg qhs from neurological perspective since higher dose can cause side-effects. Vascular surgery team is on board and recommended outpatient right trans-carotid artery revasculization in one week. Neurochecks Cardiac monitoring PT OT and HOSPICE REGISTERED NURSE We'll defer the rest of the medical management to primary team For DVT prophylaxis On subcu heparin 5000 at every 12 hours. Plan discussed with the patient, his was at bedside and the N.P. from primary team. Time with Patient: Less than 30
--- NOTE | 2023-04-18 14:52 | MR ---
EXAMINATION TYPE: MR brain wo con DATE OF EXAM: 04/18/2023 COMPARISON: None HISTORY: Expressive aphasia. CONTRAST: Performed utilizing 0 mL intravenous Gadavist gadolinium contrast. TECHNIQUE: Multiplanar, multiecho imaging on a 3.0 Daniela magnet is performed through the brain. Stud y is performed within 24 hours of arrival to the hospital. The craniovertebral junction is normal. The pituitary is normal. Diffusion-weighted imaging is performed. No abnormal hyperintensity is present to suggest an acute i ntracranial infarct or acute ischemic change. There is hypodensity within the left occipital lobe compatible with old infarct. White matter changes are present throughout the left centrum semiovale. Few punctate areas of white matter change or with in the right periventricular white matter. Ventricles and sulci are prominent for the patient age. IMPRESSION: 1. Old left occipital lobe infarct. 2. Extensive chronic-appearing white matter changes predominantly on the left. 3. No suspicious changes to suggest acute ischemia by MRI.
[2023-04-18 15:41] VITALS: BP 142/73; PULSE 65
--- NOTE | 2023-04-19 10:44 | P.DS ---
Providers Date of admission: 04/16/23 19:16 Expected date of discharge: 04/18/23 Attending physician: Ayse Peoples Consults: 04/17/23 09:06 Consult Physician Routine Consulting Provider: Joel Thomas Consult Reason/Comments: right leg weakness Do you want consulting provider notified?: Yes 04/17/23 09:18 Consult Physician Urgent Consulting Provider: Taylor Nolasco Consult Reason/Comments: ICA stenosis, sent from [facility] for eval Do you want consulting provider notified?: Yes Primary care physician: Jarocho Barrow Hospital Course: Final diagnosis Slurred speech and generalized weakness. Concern for CVA versus symptoms due to COVID-19 infection. Right ICA 90% stenosis and left ICA 50% stenosis secondary to calcified plaque Acute COVID-19 infection History of CVA with right-sided weakness and mild right Facial droop Hypertension Hyperlipidemia History of lumbar surgery History of cystoscopy and lithotripsy GI and DVT prophylaxis PPI and heparin subcu Discharge disposition Patient is being discharged in a stable condition with guarded prognosis to home. Patient will follow-up with Dr. Barrow in the outpatient setting upon discharge. Patient is to continue with aspirin, Plavix, increase statin therapy and close outpatient follow-up with vascular surgery as well as cardiology as scheduled. Total time taken is greater than 35 minutes. Hospital course This is a 78-year-old male who was recently admitted after being evaluated at [facility] and sent over here for vascular surgery consultation. Images from [facility] were reviewed Dr. Nolasco recommending outpatient follow-up and patient also evaluated by neurology underwent MRI of the brain. Patient has been cleared by consultations for discharge and recommend outpatient follow-up with cardiology for possible outpatient echo and will be undergoing further workup for possible carotid procedure with vascular surgery. Patient reports to feeling well and extremely anxious to go home. Patient has been cleared. Please refer to consultation notes for further HPI. Currently no reports of chest pain, shortness of breath, or palpitations. Patient is afebrile. No reports of nausea or vomiting and patient is tolerating diet. Patient will be discharged home today. Physical exam: Gen: This is a 78-year-old male who is awake, alert and oriented 3, well- developed, well-nourished HEENT: Head is atraumatic, normocephalic. Pupils equal, round. Sclerae is anicteric. NECK: Supple. No JVD. No lymphadenopathy. No thyromegaly. LUNGS: Clear to auscultation. No wheezes or rhonchi. No intercostal retractions. HEART: Regular rate and rhythm. No murmur. ABDOMEN: Soft. Bowel sounds are present. No masses. No tenderness. EXTREMITIES: No pedal edema. No calf tenderness. NEUROLOGICAL: Patient is awake, alert and oriented x3. Cranial nerves 2 through 12 are grossly intact. Please refer to medication reconciliation sheet for a list of medications. The impression and plan of care has been dictated by Jessica Dawkins, Nurse Practitioner as directed. Dr. Nessa MD I have performed a history and examination and MDM of this patient, discussed the same with the dictator, and agree with the dictator's assessment and plan as written ,documented as a scribe. Based on total visit time, I have performed more than 50% of the visit. Patient Condition at Discharge: Fair Plan - Discharge Summary New Discharge Prescriptions: New Atorvastatin [Lipitor] 80 mg PO HS 30 Days #30 tab Clopidogrel [Plavix] 75 mg PO DAILY 30 Days #30 tab Acetaminophen Tab [Tylenol] 650 mg PO Q6HR PRN tab PRN Reason: Fever And/ Or Pain Pantoprazole [Protonix] 40 mg PO AC-BRKFST #30 tab Continue amLODIPine BESYLATE/BENAZEPRIL [Lotrel 10-20 MG] 1 cap PO HS Aspirin 81 mg PO DAILY #30 chewable Omeprazole 20 mg PO HS Mirabegron [Myrbetriq] 25 mg PO DAILY Discontinued Atorvastatin Calcium [Lipitor] 10 mg PO HS Discharge Medication List amLODIPine BESYLATE/BENAZEPRIL [Lotrel 10-20 MG] 1 cap PO HS 08/22/20 [History] Aspirin 81 mg PO DAILY #30 chewable 08/23/20 [Rx] Mirabegron [Myrbetriq] 25 mg PO DAILY 04/16/23 [History] Omeprazole 20 mg PO HS 04/16/23 [History] Acetaminophen Tab [Tylenol] 650 mg PO Q6HR PRN tab 04/18/23 [Rx] Atorvastatin [Lipitor] 80 mg PO HS 30 Days #30 tab 04/18/23 [Rx] Clopidogrel [Plavix] 75 mg PO DAILY 30 Days #30 tab 04/18/23 [Rx] Pantoprazole [Protonix] 40 mg PO AC-BRKFST #30 tab 04/18/23 [Rx] Follow up Appointment(s)/Referral(s): Jarocho Barrow MD [Primary Care Provider] - 1 Week (Office is closed. Please call to schedule appointment) Taylor Nolasco DO [STAFF PHYSICIAN] - 04/24/23 12:00 pm (Saturday (this date may change. office will call if it does )) Arthur Mckenna MD [STAFF PHYSICIAN] - 1 Week (Follow-up with cardiology for an echo Spoke to Gabino in the office. She will call you back with appointment time ) Activity/Diet/Wound Care/Special Instructions: Activity limited until follow up Follow-up with primary care provider on discharge Continue taking medications as prescribed Follow-up with vascular surgery in 1-2 weeks as discussed Discharge Disposition: HOME SELF-CARE
== END 2023-04-18 16:28 | disposition home or self-care (01) | DRG 178 ==
LOC: 3SCARD 19:16
PROVIDERS: ADMIT Internal Medicine; ATTEND Internal Medicine
DX: U07.1 COVID-19 (principal); I69.351 Hemiplegia and hemiparesis following cerebral infarction affecting right dominant side; I10 Essential (primary) hypertension; R53.1 Weakness; I65.23 Occlusion and stenosis of bilateral carotid arteries; I69.320 Aphasia following cerebral infarction; R29.810 Facial weakness; E78.00 Pure hypercholesterolemia, unspecified; I69.392 Facial weakness following cerebral infarction; Z98.42 Cataract extraction status, left eye; Z98.41 Cataract extraction status, right eye
CPT/HCPCS: 70551; 80048; 80061; 82607; 82747; 83036; 84439; 84443; 85025

== ENCOUNTER 2023-05-10 07:42 | Inpatient (IN) | payer MEDICARE ==
[2023-05-06 11:58] VITALS: BMI 23.6
[~2023-05-10 07:42] MED LIST changes: +ALPRAZolam 0.25 MG TAB PO PRN; +ALPRAZolam 0.5 MG TAB PO PRN; +ASPIRIN 325 MG TAB PO PRN; +ASPIRIN 81 MG PO PRN; +CLOPIDOGREL 75 MG TAB PO PRN; -DEXAMETHASONE SOD PHOSPHATE 4 MG/ML 1 ML VIAL IV ONE; -HEPARIN SODIUM,PORCINE/PF 5,000 UNIT/0.5 ML SYRINGE SQ PRN; -MIDAZOLAM 2 MG/2 ML VIAL IV PRN; +NITROGLYCERIN SL TABS 0.4 MG TAB SUBLINGUAL PRN; -ONDANSETRON 4 MG/2 ML VIAL IVP ONE; +SODIUM CHLORIDE 0.9% 1,000 ML in EMPTY BAG 1 BAG IV ONE; +ceFAZolin 2 GM in SODIUM CHLORIDE 0.9% 500 ML 500 ML IRRIGATION PRN
[2023-05-10] MEDS ORDERED: DEXMEDETOMIDINE/0.9% NACL(PMX) 400 MCG in EMPTY BAG 1 BAG IV SCH (08:00)
[2023-05-10 08:58] LABS: Basophils % (A) 0 %; Eosinophils # (A) 0.1 k/uL (0-0.7); Eosinophils % (A) 1 %; HCT 43.2 % (39.0-53.0); HGB 14.6 gm/dL (13.0-17.5); Lymphocytes # (A) 1.4 k/uL (1.0-4.8); Lymphocytes % (A) 19 %; MCH 31.4 pg (25.0-35.0); MCHC 33.7 g/dL (31.0-37.0); MCV 93.1 fL (80.0-100.0); Mean Platelet Volume 7.6; Monocytes # (A) 0.5 k/uL (0-1.0); Monocytes % (A) 7 %; Neutrophils # (A) 5.1 k/uL (1.3-7.7); Neutrophils % (A) 71 %; Platelet Count 215 k/uL (150-450); RBC 4.64 m/uL (4.30-5.90); RDW 13.6 % (11.5-15.5); WBC 7.2 k/uL (3.8-10.6)
[2023-05-10] MEDS ORDERED: RX INFO: IV CONTRAST WAS GIVEN 1 EACH MISC MISCELLANE PRN (09:00)
[2023-05-10] MEDS ORDERED: LIDOCAINE 1% INJ 10MG/ML (20 ML MDV) ONE ×2 (09:02→10:06)
[2023-05-10 09:21] LABS: African American GFR (CKD) 78 (>60 ml/min/1.73 sqM); Anion Gap 11 mmol/L; Blood Urea Nitrogen 23 mg/dL (9-20); Calcium 9.9 mg/dL (8.4-10.2); Carbon Dioxide 25 mmol/L (22-30); Chloride 105 mmol/L (98-107); Glucose 107 mg/dL (74-99); Non-African American GFR(CKD) 68 (>60 ml/min/1.73 sqM); Sodium 141 mmol/L (137-145)
[2023-05-10] MEDS ORDERED: ePHEDrine 50 MG/ML 1 ML VIAL ONE (10:03)
[2023-05-10] MEDS ORDERED: GLYCOPYRROLATE 0.2 MG/ML 2 ML VIAL ONE (10:03)
[2023-05-10] MEDS ORDERED: NITROGLYCERIN-D5W PMX 50 MG/250 ML BOTTLE IV ONE (10:03)
[2023-05-10] MEDS ORDERED: fentaNYL (PF) 50 MCG/ML 2 ML AMP ONE (10:03)
[2023-05-10] MEDS ORDERED: HEPARIN SODIUM,PORCINE 10,000 UNIT/ML 1 ML VIAL ONE (10:03)
[2023-05-10] MEDS ORDERED: WATER FOR INJECTION, STERILE 10 ML VIAL IV ONE (10:03)
--- NOTE | 2023-05-10 10:16 | P.ANPRN ---
Procedure Note - Anesthesia - Invasive Line Left Arterial Line Time Out Performed: Yes Date of Procedure: 05/10/23 Time of Procedure: 09:40 Location of Patient: [facility] Preparation: Sterile Prep Arterial Line Location: Radial Ultrasound Used: Yes Purpose - Visualization and Identification of Vasculature: Yes Image Stored and Saved: Yes Narrative: Central line placement per sterile protocol utilized.
[2023-05-10] MEDS ORDERED: LIDOCAINE 1% INJ 10MG/ML (20 ML MDV) SQ ONE ×2 (10:32→10:33)
[2023-05-10] MEDS ORDERED: IOPAMIDOL-370 100ML BTL INJ ONE (11:30)
[2023-05-10] MEDS ORDERED: LACTATED RINGERS 1,000 ML IV ONE (12:00)
--- NOTE | 2023-05-10 12:14 | P.OP ---
Date of Procedure: 05/10/23 Description of Procedure: Preoperative diagnosis: Right internal carotid artery Postoperative diagnosis: Same Procedure: Right Transcarotid artery revascularization with stenting. 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 He presents today for trans-carotid artery revascularization. Risks and benefits have been discussed including options for the procedures. He seemingly understood and was willing to proceed. He has been taking his aspirin and Plavix since his hospital admission a few weeks ago. Operative narrative: After written and informed consent was obtained the patient all risks benefits and competitions were described the patient was brought to the [facility] and laid in a supine position. The area of the neck and groins were prepped and draped in usual sterile fashion after appropriate anesthetic was performed per the anesthesiologist. A timeout was performed in normal fashion and antibiotics were administered prior to incision. Utilizing ultrasound the right common carotid artery was located and a transverse incision was created overlying this area after proper anesthetization. Dissection was carried between the sternocleidomastoid musculature down to the carotid sheath. The sheath was then incised and the common carotid artery was located and dissected free in a circumferential manner and controlled with umbilical tape. Once controlled, attention was placed down to the common femoral vein and utilizing ultrasound the vein was cannulated and the 8-Martiniquais sheath was placed in normal fashion. Attention was then placed back to the carotid artery and the patient was administered heparin and followed with ACTs and redosed as needed for ACT above 250. A pursestring suture was then placed at the common carotid artery with 5-0 Prolene and utilizing a micropuncture needle the common carotid artery was accessed and wire was placed followed by a 4-Martiniquais sheath. Carotid angiogram was then obtained demonstrating significant stenosis in the internal carotid artery. Stiff wire was then placed followed by the 8 Martiniquais Silkroad sheath. Flow reversal was then established with the enroute TEXTILE SCREEN PRINTER system after patient's blood pressure was increased to above 160, heart rate above 60 and ACT above 250. 014 wire was then placed across the lesion followed by a 5.5 x 30 mm Beltran balloon and balloon angioplasty was performed followed by an 9 x 40 mm Silkroad stent. Postdilatation was not performed and final angiogram was obtained demonstrating improvement of the stenosis. All guidewires and catheters were removed and the sheath was removed and the arteriotomy was secured with the previously placed pursestring suture. Hemostasis was assured with Gelfoam and thrombin. The area was irrigated and closed over a 10-Martiniquais drain. The platysma was closed with 3-0 Vicryl. The skin was closed with running 4-0 Monocryl in subcuticular fashion The femoral sheath was also removed and pressure was held for hemostasis. The patient all procedure well and was moving all extremities and following commands. The patient was then sent to PACU for recovery.
[2023-05-10] MEDS ORDERED: MAG HYDROX/AL HYDROX/SIMETH 30 ML CUP PO PRN (12:15)
[2023-05-10] MEDS: PHENYLEPHRINE-0.9% NACL SYG 1,000 MCG/10 ML SYRINGE IVP ONE ×3 (12:40→12:56)
--- NOTE | 2023-05-10 12:53 | IR ---
EXAMINATION TYPE: IR stent intravas non coronary DATE OF EXAM: 05/10/2023 COMPARISON: NONE HISTORY: Fluoroscopy time. Fluoroscopy was provided to the referring clinician.
[2023-05-10] MEDS ORDERED: THROMBIN (BOVINE) 5,000 UNIT VIAL TOPICAL ONE (12:56)
[2023-05-10] MEDS ORDERED: GELATIN SPONGE,ABSORB (SMALL) 1 EACH SPONGE TOPICAL ONE (12:56)
[2023-05-10] MEDS ORDERED: HEPARIN SODIUM,PORCINE 10,000 UNIT in SODIUM CHLORIDE 0.9% 1,000 ML IRRIGATION ONE (12:57)
[2023-05-10] MEDS ORDERED: ceFAZolin 2,000 MG in SODIUM CHLORIDE 0.9% 1,000 ML IRRIGATION ONE (12:58)
[2023-05-10] MEDS: PHENYLEPHRINE 40 MG in SODIUM CHLORIDE 0.9% 250 ML IV SCH ×2 (13:04→13:17)
[2023-05-10] MEDS ORDERED: HYDROmorphone 0.5 MG/0.5 ML SYRINGE IVP ONE (13:11)
[2023-05-10] MEDS: PSEUDOEPHEDRINE 30 MG TAB PO SCH ×2 (14:43→20:08)
[2023-05-10] MEDS ORDERED: ceFAZolin 2 GM in SODIUM CHLORIDE 0.9% 500 ML 500 ML IRRIGATION ONE (15:00)
[2023-05-10] MEDS ORDERED: MORPHINE SULFATE 4 MG/ML SYRINGE IVP PRN (18:29)
[2023-05-10] MEDS ORDERED: HYDROcodone/APAP 5-325MG 1 EACH TAB PO PRN (18:29)
[2023-05-10 18:35] VITALS: RESP 18
[2023-05-10] MEDS ORDERED: ASPIRIN 81 MG PO SCH (20:00)
[2023-05-10] MEDS ORDERED: ATORVASTATIN 40 MG TAB PO SCH (21:00)
[2023-05-11] MEDS: PSEUDOEPHEDRINE 30 MG TAB PO SCH ×2 (00:55→06:58)
--- NOTE | 2023-05-11 06:33 | P.CONS ---
History of Present Illness - Reason for Consult Consult date: 05/11/23 Postoperative medical management of hypertension - Chief Complaint Right carotid stenosis - History of Present Illness 78-year-old male with hypertension, history of stroke Patient coming in for scheduled right carotid endarterectomy tolerated procedure well no observed immediate postoperative competitions denies any new focal neuro deficits denies any headache Patient was recently hospitalized earlier this month for stroke like symptoms found to have right carotid stenosis of 90% patient was also diagnosed with culprit at that time. Currently he feels fine denies any chest pain trouble breathing nausea vomiting abdominal pain he tolerated by mouth intake Postop he had difficulty urinating had some urinary retention requiring Nolasco catheter insertion Patient denies tobacco smoking illicit drugs or alcohol review of systems Pertinent positives as noted in HPI. All other systems were reviewed and are negative on exam Constitutional: No acute distress, conversant, pleasant Eyes: Anicteric sclerae, moist conjunctiva, Pupils equal round reactive to light ENMT: NC/AT Oropharynx clear, no erythema, or exudates Neck: Surgical site looks clean dry and intact Lungs: Clear to auscultation Clear to percussion Normal respiratory effort, no accessory muscle use Cardiovascular: Heart regular in rate and rhythm, No murmurs, gallops, or rubs No peripheral edema Abdominal: Soft Nontender, no guarding, rebound or rigidity Abdomen moving with respiration Normoactive bowel sounds No hepatomegaly, No splenomegaly Extremities: No digital cyanosis No clubbing Pedal pulses intact and symmetrical Radial pulses intact and symmetrical No calf tenderness Psychiatric: Alert and oriented to person, place and time Appropriate affect fair judgement Neuro Muscles Strength 5/5 in all 4 extremities Sensation to light touch grossly present throughout Cranial nerves II-XII grossly intact Past Medical History Past Medical History: Cancer, CVA/TIA, Hyperlipidemia, Hypertension, Osteoarthritis (OA) Additional Past Medical History / Comment(s): TIA X2 04/15/23. Hx stroke 11 yrs ago. Hx skin and kidney cancer. Hx kidney stones. History of Any Multi-Drug Resistant Organisms: None Reported Past Surgical History: Back Surgery, Orthopedic Surgery Additional Past Surgical History / Comment(s): Lumbar surgery, cystoscopy/lithotripsy, pyloric sphincter surgery as baby, right rotator cuff repair, colonoscopy, bilateral cataract removal, cancerous kidney mass removed. Past Anesthesia/Blood Transfusion Reactions: No Reported Reaction Past Psychological History: No Psychological Hx Reported Smoking Status: Never smoker Past Alcohol Use History: Occasional Past Drug Use History: None Reported - Past Family History Mother Family Medical History: CVA/TIA Additional Family Medical History / Comment(s): Mother had a CVA. Father Family Medical History: Unable to Obtain Additional Family Medical History / Comment(s): Pt cannot recall father's medical hx. Medications and Allergies Home Medications Medication Instructions Recorded Confirmed Type amLODIPine BESYLATE/BENAZEPRIL 1 cap PO HS 08/22/20 05/10/23 History [Lotrel 10-20 MG] Atorvastatin [Lipitor] 80 mg PO HS 30 Days #30 tab 04/18/23 05/10/23 Rx Clopidogrel [Plavix] 75 mg PO QAM 05/06/23 05/10/23 History Aspirin 81 mg PO HS 05/10/23 05/10/23 History Allergies Allergy/AdvReac Type Severity Reaction Status Date / Time No Known Allergies Allergy Verified 05/06/23 11:30 Physical Exam Vitals: Vital Signs Temp Pulse Pulse Resp BP BP Pulse Ox 05/11/23 02:00 97.2 F L 60 134/62 05/10/23 20:13 97 F L 54 L 18 133/63 95 05/10/23 18:00 62 18 117/76 97 05/10/23 14:45 57 L 13 134/66 94 L 05/10/23 14:30 52 L 18 138/78 99 05/10/23 14:15 60 17 142/60 98 05/10/23 14:00 53 L 17 137/64 97 05/10/23 13:45 56 L 14 142/57 141/56 97 05/10/23 13:30 68 17 142/55 144/65 96 05/10/23 13:15 55 L 16 156/63 158/71 94 L 05/10/23 13:00 55 L 16 135/56 134/64 96 05/10/23 12:43 53 L 16 137/58 118/59 95 05/10/23 12:39 103/52 05/10/23 12:30 60 14 102/63 106/53 99 05/10/23 12:15 56 L 16 106/44 106/53 95 05/10/23 12:00 97 F L 64 12 130/63 121/49 97 05/10/23 08:11 97.6 F 78 16 176/83 172/70 98 Intake and Output 05/10/23 05/10/23 05/11/23 14:59 22:59 06:59 Intake Total 1101 1 Output Total 300 945 Balance 801 -944 Intake: IV 1101 1 Output: Drainage 20 Right Anterior Neck 20 Urine 300 925 Other: Voiding Method Indwelling Catheter Weight 74.5 kg Results CBC & Chem 7: 05/10/23 08:10 05/10/23 08:10 Labs: Abnormal Lab Results - Last 24 Hours (Table) 05/10/23 Range/Units 08:10 BUN 23 H (9-20) mg/dL Glucose 107 H (74-99) mg/dL Assessment and Plan Assessment: Right carotid stenosis status post right carotid endarterectomy postoperative day one Tolerated procedure well Continue with aspirin, Plavix, statin Further recommendations per primary surgical team Urinary retention postop Consider removal of Nolasco catheter and voiding trial for discharge Hypertension, controlled Resume amlodipine History of stroke Continue with aspirin, statin and Plavix Thank you for this consultation Stable from medical standpoint Follow-up CBC BMP in the morning
[2023-05-11 06:34] VITALS: TEMP 97.2
[2023-05-11 06:58] VITALS: BP 140/72; PULSE 58
[2023-05-11] MEDS ORDERED: CLOPIDOGREL 75 MG TAB PO SCH (09:00)
[2023-05-11 11:05] LABS: Basophils % (A) 0 %; Eosinophils # (A) 0.1 k/uL (0-0.7); Eosinophils % (A) 1 %; HCT 35.6 % (39.0-53.0); HGB 12.1 gm/dL (13.0-17.5); Lymphocytes # (A) 0.7 k/uL (1.0-4.8); Lymphocytes % (A) 10 %; MCH 31.6 pg (25.0-35.0); Mean Platelet Volume 7.7; Monocytes # (A) 0.6 k/uL (0-1.0); Monocytes % (A) 9 %; Neutrophils # (A) 5.4 k/uL (1.3-7.7); Neutrophils % (A) 78 %; Platelet Count 154 k/uL (150-450); RBC 3.83 m/uL (4.30-5.90); WBC 6.9 k/uL (3.8-10.6)
--- NOTE | 2023-05-11 11:15 | P.DS ---
Providers Date of admission: 05/10/23 07:42 Attending physician: Anna Brewster MD Consults: 05/10/23 12:15 Consult Physician Routine Consulting Provider: Jarocho Barrow Reason/Comments: med mgmnt post carotid stent Do you want consulting provider notified?: Yes Primary care physician: Jarocho Barrow Hospital Course: Patient is a 78-year-old male who underwent a right trans-carotid artery revasc ularization and stent. He has been recovering well. He did have an episode of urinary retention requiring a Nolasco catheter. That is to be removed this morning. Otherwise he is feeling well without any significant complaints or concerns. No motor intact Patient Condition at Discharge: Good Plan - Discharge Summary Discharge Rx Participant: No New Discharge Prescriptions: New Clopidogrel [Plavix] 75 mg PO DAILY #30 tablet No Action RX: amLODIPine BESYLATE/BENAZEPRIL [Lotrel 10-20 MG] 1 cap PO HS RX: Atorvastatin [Lipitor] 80 mg PO HS 30 Days #30 tab RX: Clopidogrel [Plavix] 75 mg PO QAM RX: Aspirin 81 mg PO HS Discharge Medication List RX: amLODIPine BESYLATE/BENAZEPRIL [Lotrel 10-20 MG] 1 cap PO HS 08/22/20 [History] RX: Atorvastatin [Lipitor] 80 mg PO HS 30 Days #30 tab 04/18/23 [Rx] RX: Clopidogrel [Plavix] 75 mg PO QAM 05/06/23 [History] RX: Aspirin 81 mg PO HS 05/10/23 [History] Clopidogrel [Plavix] 75 mg PO DAILY #30 tablet 05/11/23 [Rx] Follow up Appointment(s)/Referral(s): Taylor Nolasco DO [STAFF PHYSICIAN] - 1 Week Activity/Diet/Wound Care/Special Instructions: May shower starting tomorrow. No soaking, tubs or swimming. May remove dressings prior to showering. May cover if desired. No heavy lifting. No driving until seen in the office. Resume home medications, new prescription for Plavix sent to pharmacy Discharge Disposition: HOME SELF-CARE
[2023-05-11 11:31] LABS: African American GFR (CKD) >90 (>60 ml/min/1.73 sqM); Anion Gap 10 mmol/L; Blood Urea Nitrogen 18 mg/dL (9-20); Calcium 9.1 mg/dL (8.4-10.2); Carbon Dioxide 22 mmol/L (22-30); Chloride 104 mmol/L (98-107); Glucose 133 mg/dL (74-99); Non-African American GFR(CKD) 87 (>60 ml/min/1.73 sqM); Potassium 3.7 mmol/L (3.5-5.1); Sodium 136 mmol/L (137-145)
--- NOTE | 2023-05-11 12:45 | P.PN ---
Subjective Progress Note Date: 05/11/23 Hospital course: Patient is a pleasant 78-year-old male with a past medical history of hypertension, CVA, carotid artery stenosis. He is currently admitted under vascular surgery team status post right transverse carotid artery revascularization with stenting completed on 05/10/[address] Nolasco. We were consulted for medical management throughout hospitalization. Physical exam: Patient seen and fully evaluated at bedside this morning. Patient ambulatory in room, family visiting at bedside. Patient denies having any complaints at this time including headache, lightheadedness, dizziness, chest pain, palpitations, shortness of breath, or experiencing any numbness/tingling/weakness in his extremities. Vital signs reviewed and stable. General: Nontoxic, no distress and appears stated age. Derm: Skin warm and dry, normal coloration for ethnicity. Head: Atraumatic, normocephalic and symmetric. Eyes: EOMs intact, no lid lag, and anicteric sclera Mouth: no lip lesions, mucus membranes moist Cardiovascular: regular rate and rhythm with normal S1S2, no murmur, positive posterior tibial pulses bilaterally, and cap refill < 2 seconds. Lungs: Respirations even, regular, and unlabored on room air. Lungs CTA bilaterally, no rhonchi, no rales, no wheezing, and no accessory muscle usage. Abdominal: soft, nontender to palpation, no guarding, no appreciable organomega ly Ext: ROM intact. No gross muscle atrophy, no edema, no contractures Neuro: Speech clear, face symmetrical and CN II-XII grossly intact with no noted focal neuro deficits Psych: Alert and oriented to person, place, time, and situation. Appropriate and pleasant affect. Assessment and Plan of Care: Acute postoperative blood loss anemia, stable and expected finding -Postoperative labs reviewed. CBC showing acute postoperative blood loss anemia with hemoglobin of 12.1 and preoperative hemoglobin of 14.6, this is an expected and stable finding. -Patient has no active bleeding, hemoglobin again is stable at 12.1 with no need for transfusion, or further testing at this time. Postoperative urinary retention, resolved -Patient initially requiring Nolasco catheter placement, this was removed this morning and patient reports urinating without any difficulties. Status post right transverse carotid artery revascularization with placement of stent -Patient is postoperative day 1 and appears to be doing well. -Management per primary admitting vascular surgery team including wound care/dressing changes, antiplatelet medication, Data reviewed: Postoperative labs reviewed. CBC showing acute postoperative blood loss anemia with hemoglobin of 12.1 and preoperative hemoglobin of 14.6, this is an expected and stable finding. BMP unremarkable. Vital signs reviewed and stable. Blood pressure 140/72, heart rate 58, respiratory rate 18, temp 97.2F, SpO2 of 96% on room air. Medically, patient is optimized for discharge home at this time with no further recommendations are testing to be completed. Patient may be discharged once cleared by primary admitting vascular surgery team. Thank you for allowing us to participate in the care of this pleasant patient. Do not hesitate to contact us with questions. Someone can be reached from the [facility] hospitalist group all hours of the day at [phone] or via [employer]. Patient was seen independently by Nurse Pracitioner. This document was prepared using Machine [employer]er dictation software. Please allow for errors in tetryl dissolver operator, while rare they do occur. Objective - Vital Signs Vital signs: Vital Signs Temp 97.2 F L 05/11/23 02:00 Pulse 58 L 05/11/23 04:00 Resp 18 05/11/23 04:00 BP 140/72 05/11/23 04:00 Pulse Ox 96 05/11/23 04:00 FiO2 Intake & Output 05/10/23 05/11/23 05/11/23 18:59 06:59 18:59 Intake Total 1102 Output Total 975 270 Balance 127 -270 Weight 74.5 kg Intake: IV 1102 Output: Drainage 20 Right Anterior Neck 20 Urine 975 250 Other: Voiding Method Indwelling Catheter - Labs CBC & Chem 7: 05/11/23 09:48 05/11/23 09:48 Labs: Abnormal Lab Results - Last 24 Hours (Table) 05/10/23 Range/Units 08:10 BUN 23 H (9-20) mg/dL Glucose 107 H (74-99) mg/dL
[2023-05-11] MEDS ORDERED: lisinopriL 20 MG TAB PO SCH (21:00)
[2023-05-11] MEDS ORDERED: amLODIPine 10 MG TAB PO SCH (21:00)
== END 2023-05-11 11:56 | disposition home or self-care (01) | DRG 35 ==
LOC: 2ORMAIN 07:42 → 3SCARD 14:22
PROVIDERS: ADMIT Family Medicine; ATTEND Family Medicine
PROC: 037K3DZ Dilation of Right Internal Carotid Artery with Intraluminal Device, Percutaneous Approach (ICD-10-PCS; principal; 2023-05-10 09:30)
DX: I65.21 Occlusion and stenosis of right carotid artery (principal); D62 Acute posthemorrhagic anemia; R33.9 Retention of urine, unspecified; E78.5 Hyperlipidemia, unspecified; I10 Essential (primary) hypertension; M19.90 Unspecified osteoarthritis, unspecified site; Z79.02 Long term (current) use of antithrombotics/antiplatelets; Z79.82 Long term (current) use of aspirin; Z79.899 Other long term (current) drug therapy; Z86.73 Personal history of transient ischemic attack (TIA), and cerebral infarction without residual deficits; Z87.442 Personal history of urinary calculi; Z85.528 Personal history of other malignant neoplasm of kidney; Z85.828 Personal history of other malignant neoplasm of skin
CPT/HCPCS: 37215; 80048; 85025; 86850; 86900; 86901